=== PATIENT | female | born 1960 | race Caucasian/White ===

== ENCOUNTER 2018-06-14 22:14 | Emergency (ER) | payer MEDICARE, MEDICAID ==
--- NOTE | 2018-06-14 22:38 | EDM.PDOC ---
ED HPI GENERAL MEDICAL PROBLEM - General Chief Complaint: Lower Extremity Injury/Pain Stated Complaint: lower right leg pain Time Seen by Provider: 06/14/18 22:28 Source of Information: Reports: Patient History Limitations: Reports: No Limitations - History of Present Illness INITIAL COMMENTS - FREE TEXT/NARRATIVE: Patient does come in this evening with complaints of right sided buttock pain as well as right lateral lower leg pain and twitching. She states she has not been able to sleep over the last couple of nights. She denies any issues while up and walking around, but just trying to sleep. She denies headache, chest pain, SOB, recent illness, no bowel or bladder complaints. No fever, chills, or night sweats. She has normal ROM with her extremities. She denies recent falls or injury to her leg or back. She also states she has had history of back and left hip pain with some PT visits. Onset Date: 06/12/18 Duration: Intermittent Location: Reports: Lower Extremity, Right Quality: Reports: Sharp Severity: Moderate Improves with: Reports: None Worsens with: Reports: Rest Context: Reports: Other (lying in bed) Associated Symptoms: Reports: No Other Symptoms - Related Data Allergies Allergy/AdvReac Type Severity Reaction Status Date / Time No Known Allergies Allergy Verified 06/14/18 22:42 Home Meds: Home Meds ARIPiprazole [Aripiprazole] 15 mg PO BEDTIME 06/14/18 [History] Benztropine [Cogentin] 1 mg PO BEDTIME 06/14/18 [History] Desmopressin 0.1 mg PO BEDTIME 06/14/18 [History] Simvastatin 10 mg PO DAILY 06/14/18 [History] Vilazodone Hydrochloride [Viibryd] 40 mg PO DAILY 06/14/18 [History] buPROPion HCl [Wellbutrin Xl] 300 mg PO DAILY 06/14/18 [History] lamoTRIgine [Lamotrigine] 100 mg PO BID 06/14/18 [History] metFORMIN [Glucophage XR] 250 mg PO BID 06/14/18 [History] Review of Systems - Review of Systems Review Of Systems: See Below Constitutional: Reports: No Symptoms Eyes: Reports: No Symptoms Ears: Reports: No Symptoms Nose: Reports: No Symptoms Mouth/Throat: Reports: No Symptoms Respiratory: Reports: No Symptoms Cardiovascular: Reports: No Symptoms GI/Abdominal: Reports: No Symptoms Genitourinary: Reports: No Symptoms Musculoskeletal: Reports: Other (right buttocks and lower right leg pain, lateral side.) Skin: Reports: No Symptoms Neurological: Reports: Other (pain and twitching to right lower leg) Psychiatric: Reports: No Symptoms ED EXAM, GENERAL - Physical Exam Exam: See Below Exam Limited By: No Limitations General Appearance: Alert, WD/WN, No Apparent Distress Eye Exam: Bilateral Eye: EOMI, Normal Inspection, PERRL Ears: Normal TMs Nose: Normal Inspection, Normal Mucosa, No Blood Throat/Mouth: Normal Inspection, Normal Lips, Normal Teeth, Normal Gums, Normal Oropharynx, Normal Voice, No Airway Compromise Head: Atraumatic, Normocephalic Neck: Normal Inspection, Supple, Non-Tender, Full Range of Motion Respiratory/Chest: No Respiratory Distress, Lungs Clear, Normal Breath Sounds, No Accessory Muscle Use, Chest Non-Tender Cardiovascular: Normal Peripheral Pulses, Regular Rate, Rhythm, No Edema, No Gallop, No JVD, No Murmur, No Rub Peripheral Pulses: 2+: Radial (L), Radial (R), Posterior Tibial (L), Posterior Tibial (R), Dorsalis Pedis (L), Dorsalis Pedis (R) GI/Abdominal: Normal Bowel Sounds, Soft, Non-Tender, No Organomegaly, No Distention, No Abnormal Bruit, No Mass Back Exam: Normal Inspection, Full Range of Motion, NT Extremities: Normal Inspection, Normal Range of Motion, Non-Tender, Normal Capillary Refill, No Pedal Edema Neurological: Alert, Oriented, CN II-XII Intact, Normal Cognition, Normal Gait, Normal Reflexes, No Motor/Sensory Deficits Psychiatric: Normal Affect, Normal Mood Skin Exam: Warm, Dry, Intact, Normal Color, No Rash Lymphatic: No Adenopathy Departure - Departure Time of Disposition: 01:27 Disposition: Home, Self-Care 01 Condition: Good Clinical Impression: Restless leg, Hyponatremia - Discharge Information *PRESCRIPTION DRUG MONITORING PROGRAM REVIEWED*: No *COPY OF PRESCRIPTION DRUG MONITORING REPORT IN PATIENT FAIA: No Instructions: Restless Legs Syndrome, Hyponatremia, [id number] Forms: ED Department Discharge Additional Instructions: Follow up with Dr. Lazar this week or next to discuss possible medication causes for the leg twitching you are experiencing. She may also want to look into any possible causes that may be related to your back. You do have low sodium which can cause muscle irritation. Continue to stay well hydrated. I am sending home Flexeril/cyclobenzaprine. Please take one tablet every 8 hours as needed. Take the medication I sent with you as needed for sleep and muscle relaxation. Please call if you have any questions or concerns. - Problem List & Annotations (1) Restless leg SNOMED Code(s): 22556965 Code(s): G25.81 - RESTLESS LEGS SYNDROME Status: Acute Priority: Low Current Visit: Yes (2) Hyponatremia SNOMED Code(s): 76107244 Code(s): E87.1 - HYPO-OSMOLALITY AND HYPONATREMIA Status: Acute Priority : Low Current Visit: Yes - Problem List Review Problem List Initiated/Reviewed/Updated: Yes - Assessment/Plan Assessment:: hyponatremia Restless leg Plan: Follow up with Dr. Lazar this week or next to discuss possible medication causes for the leg twitching you are experiencing. She may also want to look into any possible causes that may be related to your back. You do have low sodium which can cause muscle irritation. Continue to stay well hydrated. I am sending home Flexeril/cyclobenzaprine. Please take one tablet every 8 hours as needed. Take the medication I sent with you as needed for sleep and muscle relaxation. Please call if you have any questions or concerns.
[2018-06-14] MEDS ORDERED: methylPREDNISolone Sodium Succinate 40 MG/1 ML SDV IM ONE (22:42)
[2018-06-14 23:16] LABS: ANION GAP 12.5 mmol/L (10-20)
[2018-06-14] MEDS ORDERED: Sodium Chloride 0.9% 1,000 ML IV ONE (23:27)
[2018-06-14] MEDS ORDERED: Sodium Chloride 0.9% 10 ML Syringe FLUSH PRN (23:27)
[2018-06-14] MEDS ORDERED: Take Home: Cyclobenzaprine 10 MG Tab, 4 Tab Pack PO ONE (23:30)
== END 2018-06-15 01:27 | disposition home or self-care (01) ==
LOC: VM.ED 22:14
DX: G25.81 Restless legs syndrome (principal); E87.1 Hypo-osmolality and hyponatremia
CPT/HCPCS: 36415; 80053; 82550; 83735; 84100; 85025; 85379; 86140; 96360; 96372; 99283; A9270-GY; J2920; J7030

== ENCOUNTER 2019-04-18 12:53 | Observation (INO) | payer MEDICARE, MEDICAID ==
[2019-04-18] MEDS ORDERED: Sodium Chloride 0.9% 10 ML Syringe FLUSH PRN (13:16)
[2019-04-18] MEDS ORDERED: Sodium Chloride 0.9% 1,000 ML IV SCH (13:30)
--- NOTE | 2019-04-18 16:41 | CR ---
[id number] RAD/RAD Hip Right 2-3V EXAM: RIGHT HIP 2 VIEWS INDICATION: Groin pain. COMPARISON: None. DISCUSSION: Mild osteoarthritis of the right hip. No fracture, dislocation or other osseous abnormality is identified. IMPRESSION: 1. Mild osteoarthritis. Edwin Funes MD 04/18/19 1640 Thank you for allowing us to participate in the care of your patient.
[2019-04-18] MEDS: ARIPIPRAZOLE 15 MG PO SCH (19:37)
[2019-04-18] MEDS: BENZTROPINE 1 MG PO SCH (19:38)
[2019-04-18] MEDS: DESMOPRESSIN 0.1 MG PO SCH (19:38)
[2019-04-18] MEDS: [UNRECOGNIZED DRUG - OTHER] PO SCH (19:39)
[2019-04-18] MEDS: LAMOTRIGINE 150 MG PO SCH (19:39)
[2019-04-18] MEDS: [UNRECOGNIZED DRUG - OTHER] PO SCH (19:40)
[2019-04-18] MEDS ORDERED: lamoTRIgine 100 MG Tab PO SCH (20:00)
--- NOTE | 2019-04-18 23:06 | PCM.HP ---
H&P History of Present Illness - General Date of Service: 04/18/19 Admit Problem/Dx: Admission Diagnosis/Problem Admission Diagnosis/Problem Confusion Source of Information: Patient, Other (transcript clerk ) - History of Present Illness Initial Comments - Free Text/Narative: 59 yo seen today in clinic went to [employer] [facility] around 7:45 for breakfast but didn't have it there then at 8-8:15 she spoke on the phone with her transcript clerk and was confused with slow speech she michael her to the clinic and she was unstable and dizzy. She has diabetes but only takes metformin. On arrival to the clinic did get OJ and a granola bar then sugar was checked and it was over 100. Her mentation is better but she just feels off like foggy. No headache no vision changes no hx of seizure or recent fall. 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 She had a similar problem in the past with low sodium she believes she felt well last night. Only new med is Klonopin for RLS started 1 week ago but she took it remotely. Urine drug screen did not show benzo's or anything. She has some tremors now but feels like it is her RLS. She has a lot of arthritis problems and feels like her right hip is weaker due to pain she had X-ray which showed only mild arthritis. All lab work in the clinic was ok she was admitted for observation and I checked on her again around 5 pm and she was still off balance per nursing, she was resting so decision was made for her to stay observation overnight and get 1 liter of IV fluids. Onset of Symptoms: Reports: Today, Sudden Duration of Symptoms: Reports: Hour(s): - Related Data Allergies/Adverse Reactions: Allergies Allergy/AdvReac Type Severity Reaction Status Date / Time No Known Allergies Allergy Verified 06/14/18 22:42 Home Medications: Home Meds ARIPiprazole [Aripiprazole] 15 mg PO BEDTIME 06/14/18 [History] Benztropine [Cogentin] 1 mg PO BEDTIME 06/14/18 [History] Desmopressin 0.1 mg PO BEDTIME 06/14/18 [History] Simvastatin 10 mg PO BEDTIME 06/14/18 [History] Vilazodone Hydrochloride [Viibryd] 40 mg PO DAILY 06/14/18 [History] buPROPion HCl [Wellbutrin Xl] 300 mg PO DAILY 06/14/18 [History] metFORMIN [Glucophage XR] 250 mg PO BIDMEALS 06/14/18 [History] Aspirin [Halfprin] 81 mg PO DAILY 04/18/19 [History] Cholecalciferol (Vitamin D3) [Vitamin D3] 2,000 unit PO DAILY 04/18/19 [History] ClonazePAM [KlonoPIN] 0.5 mg PO BEDTIME 04/18/19 [History] Fish Oil/Half Way-3 Fatty Acids [Fish Oil 1,000 MG] 1 gm PO BID 04/18/19 [History] Gabapentin [Neurontin] 300 - 600 mg PO BEDTIME 04/18/19 [History] Meloxicam 7.5 mg PO DAILY 04/18/19 [History] Multivitamin [Multi-Vitamin Daily] 1 tab PO DAILY 04/18/19 [History] Triamcinolone Acetonide [Triamcinolone Acetonide 0.1% Crm] 1 applic TOP BID [History] buPROPion [buPROPion XL] 150 mg PO BEDTIME 04/18/19 [History] lamoTRIgine [Lamotrigine] 150 mg PO BID 04/18/19 [History] Past Medical History HEENT History: Reports: Allergic Rhinitis, Other (See Below) Other HEENT History: myopia. astigmatism Cardiovascular History: Reports: High Cholesterol Respiratory History: Reports: Sleep Apnea Gastrointestinal History: Reports: Chronic Constipation Genitourinary History: Reports: Other (See Below) Other Genitourinary History: urge incontinence. nonorganic enuresis Musculoskeletal History: Reports: Back Pain, Chronic, Other (See Below) Other Musculoskeletal History: DJD. tendinitis of right shoulder. left achilles tendinitis. hip pain Neurological History: Reports: Other (See Below) Other Neuro History: memory loss Psychiatric History: Reports: Bipolar, Depression, Other (See Below) Other Psychiatric History: Borderline Personality Disorder. Dissociative Identity Disorder. social maladjustment Endocrine/Metabolic History: Reports: Diabetes, Type II, Obesity/BMI 30+ Social & Family History - Tobacco Use Smoking Status *Q: Never Smoker - Caffeine Use Caffeine Use: Reports: None - Recreational Drug Use Recreational Drug Use: No H&P Review of Systems - Review of Systems: Review Of Systems: See Below General: Reports: Weakness. Denies: Fever, Chills, Weight Loss HEENT: Reports: Glasses. Denies: Visual Changes Pulmonary: Reports: No Symptoms Cardiovascular: Reports: No Symptoms. Denies: Palpitations, Lightheadedness Gastrointestinal: Reports: No Symptoms Musculoskeletal: Reports: Leg Pain Skin: Reports: No Symptoms Psychiatric: Reports: Confusion Neurological: Reports: Dizziness (describes more as off balance than room spinning ) Hematologic/Lymphatic: Reports: No Symptoms Immunologic: Reports: No Symptoms Exam - Exam Exam: See Below - Vital Signs Vital Signs: Last Vital Signs Temp 98.1 F 04/18/19 21:28 Pulse 70 04/18/19 21:28 Resp 18 04/18/19 21:28 BP 128/71 04/18/19 21:28 Pulse Ox 97 04/18/19 21:28 Orthostatic Blood Pressure [ 145/78 Standing] Orthostatic Blood Pressure [ 148/77 Sitting] Orthostatic Blood Pressure [ 143/72 Supine] Weight: 105.233 kg - Exam General: Alert, Oriented, Cooperative HEENT: Conjunctiva Clear, EACs Clear, EOMI, Pupils Equal, Pupils Reactive Neck: Supple, Trachea Midline, +2 Carotid Pulse wo Bruit Lungs: Clear to Auscultation, Normal Respiratory Effort Cardiovascular: Regular Rate, Regular Rhythm GI/Abdominal Exam: Normal Bowel Sounds, Soft Back Exam: Normal Inspection Extremities: Normal Inspection, Non-Tender, No Pedal Edema Peripheral Pulses: 2+: Carotid (L), Carotid (R) Skin: Warm, Dry, Intact Neurological: Cranial Nerves Intact, Reflexes Equal Bilateral, Normal Speech. No: Strength Equal Bilateral, Normal Gait Neuro Extensive - Mental Status: Alert, Oriented x3, Normal Mood/Affect, Memory Intact Psychiatric: Alert, Normal Affect, Normal Mood - Patient Data Lab Results Last 24 hrs: Laboratory Results - last 24 hr 04/18/19 04/18/19 Range/Units 18:21 19:44 POC Glucose 129 H 93 (74-106) mg/dL - Problem List (1) Depression SNOMED Code(s): 77184724 ICD Code: F32.9 - MAJOR DEPRESSIVE DISORDER, SINGLE EPISODE, UNSPECIFIED Status: Chronic Priority: Medium Current Visit: Yes Qualifiers: Depression Type: unspecified Qualified Code(s): F32.9 - Major depressive disorder, single episode, unspecified (2) Confusion SNOMED Code(s): 257920677 ICD Code: R41.0 - DISORIENTATION, UNSPECIFIED Status: Acute Priority: High Current Visit: Yes (3) Diabetes SNOMED Code(s): 51891540 ICD Code: E11.9 - TYPE 2 DIABETES MELLITUS WITHOUT COMPLICATIONS Status: Chronic Priority: Medium Current Visit: Yes Qualifiers: Diabetes mellitus type: type 2 Diabetes mellitus intermediate teacher insulin use: without mcc use Diabetes mellitus complication status: without complication Qualified Code(s): E11.9 - Type 2 diabetes mellitus without complications Problem List Initiated/Reviewed/Updated: Yes Orders Last 24hrs: Active Orders 24 hr Category Date Time Status Admission Status [Patient Status] [ADT] Routine ADT 04/18/19 13:01 Active Ambulate [RC] 08,20 Care 04/18/19 13:16 Active Blood Glucose Check, Bedside [RC] 07,11,17,20 Care 04/18/19 13:16 Active Oxygen Therapy [RC] .PRN Care 04/18/19 13:16 Active Up With Assistance [RC] 08,20 Care 04/18/19 13:16 Active VTE/DVT Education [RC] .PRN Care 04/18/19 13:16 Active Vital Signs [RC] 02,06,10,14,18,22 Care 04/18/19 13:16 Active PT Evaluation and Treatment [CONS] Routine Cons 04/18/19 13:16 Active [place] [employer] Diet [DIET] Diet 04/18/19 Lunch Active ARIPiprazole [Aripiprazole] Med 04/18/19 20:00 Active 0 mg PO BEDTIME Aspirin [Halfprin] Med 04/19/19 08:00 Active 81 mg PO DAILY Benztropine [Cogentin] Med 04/18/19 20:00 Active 1 mg PO BEDTIME Desmopressin [Desmopressin] Med 04/18/19 20:00 Active 0 mg PO BEDTIME Gabapentin [Neurontin] Med 04/18/19 20:00 Active 300 mg PO BEDTIME Lamotrigine. 150mg Tab Med 04/18/19 20:00 Active 0 each PO BID Meloxicam [Mobic] Med 04/19/19 08:00 Active 7.5 mg PO DAILY Simvastatin [Zocor] Med 04/18/19 20:00 Active 0 mg PO BEDTIME Sodium Chloride 0.9% [Normal Saline] 1,000 ml Med 04/18/19 13:30 Active IV ASDIRECTED Sodium Chloride 0.9% [Saline Flush] Med 04/18/19 13:16 Active 10 ml FLUSH ASDIRECTED PRN Vilazodone Hydrochloride [Viibryd] Med 04/19/19 08:00 Active 0 mg PO DAILY buPROPion HCl [Wellbutrin Xl] Med 04/19/19 08:00 Active 0 mg PO DAILY buPROPion [Wellbutrin XL] Med 04/19/19 08:00 Active 150 mg PO DAILY Peripheral IV Insertion Adult [OM.PC] Routine Oth 04/18/19 13:16 Ordered Resuscitation Status Routine Resus Stat 04/18/19 13:16 Ordered Medication Orders Aspirin (Halfprin) 81 mg PO DAILY [facility] Bupropion HCl (Wellbutrin Xl) 150 mg PO DAILY [facility] Gabapentin (Neurontin) 300 mg PO BEDTIME [facility] Last Admin: 04/18/19 19:39 Dose: 300 mg Sodium Chloride (Normal Saline) 1,000 mls @ 100 mls/hr IV ASDIRECTED [facility] Stop: 04/18/19 23:29 Last Admin: 04/18/19 14:08 Dose: 100 mls/hr Meloxicam (Mobic) 7.5 mg PO DAILY [facility] Own Supply: (Aripiprazole 15mg) 0 mg PO BEDTIME [facility] Last Admin: 04/18/19 19:37 Dose: 15 mg Own Supply: Benztropine [ Cogentin] 1 Mg 1 mg PO BEDTIME [facility] Last Admin: 04/18/19 19:38 Dose: 1 mg Own Supply: Bupropion Hcl [ Wellbutrin Xl] 300 Mg 0 mg PO DAILY [facility] Own Supply: (Desmopressin 0.1 Mg) 0 mg PO BEDTIME [facility] Last Admin: 04/18/19 19:38 Dose: 0.1 mg Own Supply: Vilazodone Hydrochloride [ Viibryd] 40 Mg 0 mg PO DAILY [facility] Own Supply: Lamotrigine. 150mg Tab 0 each PO BID [facility] Last Admin: 04/18/19 19:39 Dose: 150 each Simvastatin (Zocor) 0 mg PO BEDTIME [facility] Last Admin: 04/18/19 19:40 Dose: 10 mg Sodium Chloride (Saline Flush) 10 ml FLUSH ASDIRECTED PRN PRN Reason: Keep Vein Open Assessment/Plan Comment:: Confusion and instability Diabetes 2 possible episode of hypoglycemia Depression with personality disorder RLS Obesity Enuresis on DDAVP Plan: Admit for IV fluids 1 liter orthostatic vitals QID accuchecks consider repeat labs if symptoms don't improve See PT Hold metformin and klonopin Could also consider inner ear problems or labrynthitis as a cause of her symptoms although it cam on acutely and she denied any URI symptoms or sinus congestion Patient does seem to be slightly slowed today and not yet back to her baseline so we will continue to observe her She had a head CT and that was negative DVT prophylaxis not ordered as admit will likely be under 24 hrs
[2019-04-19] MEDS ORDERED: MELOXICAM 7.5 MG PO SCH (08:00)
[2019-04-19] MEDS: Aspirin 81 MG Tab.EC PO SCH (08:25)
[2019-04-19] MEDS: LAMOTRIGINE 150 MG PO SCH ×2 (08:25→20:23)
[2019-04-19] MEDS: BUPROPION 150 MG PO SCH (08:25)
[2019-04-19] MEDS: BUPROPION 300 MG PO SCH (08:26)
[2019-04-19] MEDS: VILAZODONE HYDROCHLORIDE 40 MG PO SCH (08:27)
--- NOTE | 2019-04-19 09:02 | PCM.SN ---
- Free Text/Narrative Note: S: Patient seen this morning on rounds. She is feeling much better today. Dizziness is resolved. She states she has had dizziness every morning for the past 2 weeks but that this has resolved by each afternoon so she has not been overly concerned about this. She came in yesterday as someone else saw her acting funny. She is not having any chest pain, shortness of breath, or palpitations. She is having more back and hip pain. She states that over the past few weeks, she has not been doing very well with her diet and exercise. She plans to get back into exercising later this [facility] at the [facility]. She has mostly been eating candy bars from 10 am to 10 pm; she has not really been eating much for other food. She has also not been consistent with drinking enough water and has gone back to drinking mostly diet coke. O: Vitals reviewed. Patient is sitting up in bed in no acute distress. MMM. No cervical lymphadenopathy or thyromegaly. Heart with RRR, normal S1 and S2, no murmurs. Lungs CTAB. Abdomen soft, nontender. No pedal edema. A/P: #1 Dizziness #2 Type 2 diabetes - Suspect dizziness is related to relative hypoglycemia vs medication adjustments. - PT will see the patient today. - Nursing to give education regarding dietary considerations for diabetics. - Likely will be dismissed home later today but will depend on PT assessment. Rani Lazar MD
[2019-04-19] MEDS: predniSONE 20 MG Tab PO SCH (13:38)
--- NOTE | 2019-04-19 15:53 | PCM.PN ---
- General Info Date of Service: 04/19/19 Subjective Update: 59 yo female hospital day #2 admitted for dizziness of uncertain etiology. Please see simple note from earlier today as well. Patient was feeling better this morning but it did not go well when PT had her up and walking. Her balance was quite poor and she had recurrence of dizziness. She denies any other symptoms. No hearing loss, ear pain, or tinnitus. - Review of Systems General: Reports: No Symptoms HEENT: Reports: No Symptoms Pulmonary: Reports: No Symptoms Cardiovascular: Reports: No Symptoms Gastrointestinal: Reports: No Symptoms Genitourinary: Reports: No Symptoms Musculoskeletal: Reports: No Symptoms Skin: Reports: No Symptoms Neurological: Reports: Dizziness - Patient Data Vitals - Most Recent: Last Vital Signs Temp 36.7 C 04/19/19 14:00 Pulse 71 04/19/19 14:00 Resp 20 04/19/19 10:00 BP 139/77 04/19/19 14:00 Pulse Ox 99 04/19/19 14:00 Orthostatic Blood Pressure [ 145/78 Standing] Orthostatic Blood Pressure [ 148/77 Sitting] Orthostatic Blood Pressure [ 143/72 Supine] Weight - Most Recent: 105.233 kg I&O - Last 24 Hours: Intake & Output 04/19/19 04/19/19 04/19/19 06:59 14:59 22:59 Intake Total 800 740 Output Total 200 Balance 600 740 Lab Results Last 24 Hours: Laboratory Results - last 24 hr 04/18/19 04/18/19 04/19/19 Range/Units 18:21 19:44 04:56 POC Glucose 129 H 93 91 (74-106) mg/dL Med Orders - Current: Current Medications Aspirin (Halfprin) 81 mg PO DAILY [facility] Last Admin: 04/19/19 08:25 Dose: 81 mg Bupropion HCl (Wellbutrin Xl) 150 mg PO DAILY [facility] Last Admin: 04/19/19 08:25 Dose: 150 mg Gabapentin (Neurontin) 300 mg PO BEDTIME [facility] Last Admin: 04/18/19 19:39 Dose: 300 mg Meloxicam (Mobic) 7.5 mg PO DAILY [facility] Last Admin: 04/19/19 08:25 Dose: 7.5 mg Own Supply: (Aripiprazole 15mg) 0 mg PO BEDTIME [facility] Last Admin: 04/18/19 19:37 Dose: 15 mg Own Supply: Benztropine [ Cogentin] 1 Mg 1 mg PO BEDTIME [facility] Last Admin: 04/18/19 19:38 Dose: 1 mg Own Supply: Bupropion Hcl [ Wellbutrin Xl] 300 Mg 0 mg PO DAILY [facility] Last Admin: 04/19/19 08:26 Dose: 300 mg Own Supply: (Desmopressin 0.1 Mg) 0 mg PO BEDTIME [facility] Last Admin: 04/18/19 19:38 Dose: 0.1 mg Own Supply: Vilazodone Hydrochloride [ Viibryd] 40 Mg 0 mg PO DAILY [facility] Last Admin: 04/19/19 08:27 Dose: 40 mg Own Supply: Lamotrigine. 150mg Tab 0 each PO BID [facility] Last Admin: 04/19/19 08:25 Dose: 150 each Prednisone (Prednisone) 60 mg PO WITHBREAKFAST [facility] Last Admin: 04/19/19 13:38 Dose: 60 mg Simvastatin (Zocor) 0 mg PO BEDTIME [facility] Last Admin: 04/18/19 19:40 Dose: 10 mg Sodium Chloride (Saline Flush) 10 ml FLUSH ASDIRECTED PRN PRN Reason: Keep Vein Open Discontinued Medications Sodium Chloride (Normal Saline) 1,000 mls @ 100 mls/hr IV ASDIRECTED [facility] Stop: 04/18/19 23:29 Last Admin: 04/18/19 14:08 Dose: 100 mls/hr - Exam General: Alert, Cooperative, No Acute Distress HEENT: Mucous Membr. Moist/[place], Other (Ear canals and TM's normal bilaterally; hearing grossly normal) Neck: Supple, Trachea Midline, No Thyromegaly. No: Lymphadenopathy Lungs: Clear to Auscultation, Normal Respiratory Effort Cardiovascular: Regular Rate, Regular Rhythm, No Murmurs GI/Abdominal Exam: Normal Bowel Sounds, Soft, Non-Tender, No Organomegaly, No Distention, No Mass Extremities: Non-Tender, No Pedal Edema, Normal Capillary Refill Peripheral Pulses: 2+: Radial (L), Radial (R) Skin: Warm, Dry, Intact Neurological: No New Focal Deficit - Problem List & Annotations (1) Dizziness SNOMED Code(s): 070983417, 104648424 Code(s): R42 - DIZZINESS AND GIDDINESS Status: Acute Current Visit: Yes (2) Diabetes SNOMED Code(s): 01718238 Code(s): E11.9 - TYPE 2 DIABETES MELLITUS WITHOUT COMPLICATIONS Status: Chronic Priority: Medium Current Visit: Yes Qualifiers: Diabetes mellitus type: type 2 Diabetes mellitus penitentiary insulin use: without petroleum terminal plant operator use Diabetes mellitus complication status: without complication Qualified Code(s): E11.9 - Type 2 diabetes mellitus without complications (3) Osteoarthritis SNOMED Code(s): 216673853 Code(s): M19.90 - UNSPECIFIED OSTEOARTHRITIS, UNSPECIFIED SITE Status: Chronic Current Visit: Yes Qualifiers: Osteoarthritis location: multiple joints Osteoarthritis type: primary Qualified Code(s): M15.0 - Primary generalized (osteo)arthritis (4) MILO (obstructive sleep apnea) SNOMED Code(s): 30356184 Code(s): G47.33 - OBSTRUCTIVE SLEEP APNEA (ADULT) (PEDIATRIC) Status: Chronic Current Visit: Yes (5) Obesity SNOMED Code(s): 497351107, 773585819 Code(s): E66.9 - OBESITY, UNSPECIFIED Status: Chronic Current Visit: Yes Qualifiers: Obesity type: due to excess calories Obesity classification: adult class 3 (BMI >= 40) Serious obesity comorbidity presence: with serious comorbidity (6) Hyperlipidemia SNOMED Code(s): 38606823 Code(s): E78.5 - HYPERLIPIDEMIA, UNSPECIFIED Status: Chronic Current Visit: Yes Qualifiers: Hyperlipidemia type: other hyperlipidemia Qualified Code(s): E78.49 - Other hyperlipidemia; E78.4 - Other hyperlipidemia (7) Borderline personality disorder SNOMED Code(s): 67567105 Code(s): F60.3 - BORDERLINE PERSONALITY DISORDER Status: Chronic Current Visit: Yes (8) Depression SNOMED Code(s): 00601964 Code(s): F32.9 - MAJOR DEPRESSIVE DISORDER, SINGLE EPISODE, UNSPECIFIED Status: Chronic Priority: Medium Current Visit: Yes Qualifiers: Depression Type: unspecified Qualified Code(s): F32.9 - Major depressive disorder, single episode, unspecified (9) Enuresis SNOMED Code(s): 262854166 Code(s): R32 - UNSPECIFIED URINARY INCONTINENCE Status: Chronic Current Visit: Yes (10) Restless leg SNOMED Code(s): 16288697 Code(s): G25.81 - RESTLESS LEGS SYNDROME Status: Chronic Priority: Low Current Visit: No - Problem List Review Problem List Initiated/Reviewed/Updated: Yes - My Orders Last 24 Hours: My Active Orders 04/19/19 12:45 predniSONE 60 mg PO WITHBREAKFAST - Assessment Assessment:: 59 yo female admitted yesterday with dizziness of uncertain etiology; felt better at rest but was very unsteady when ambulating with PT. - Plan Plan:: #1 Dizziness - PT felt this may be an inner ear problem such as labyrinthitis. - Therefore, reasonable to do a trial of prednisone. Reviewed need to be cautious with this given patient's mental health history but she agrees to trial this. - Will start with 60 mg daily and monitor for improvement. - PT to reassess tomorrow. - If ongoing issues, may need transfer to [facility] for MRI. If continuing to improve but slowly, will consider instead admitted patient to swing bed for rehabilitation. #2 Type 2 diabetes - Metformin is held. - QID accuchecks with low dose insulin sliding scale given we are starting prednisone as above. #3 OA - PT will also be working with her on mobility to this regard as well. #4 MLIO #5 Obesity #6 Hyperlipidemia #7 Borderline Personality Disorder #8 Depression #9 Enuresis #10 RLS - Continue home medications apart from clonazepam which has been held since admission given negative UDS and concerns for this contributing to current symptoms. Patient will remain on observation status overnight - will reassess tomorrow and determine ability to be dismissed home, transfer to [facility], or transition to swing bed. No VTE prophylaxis as admission still expected to be <48 hours. Code status is full - discussed with patient on admission.
[2019-04-19] MEDS: Insulin Lispro 100 Unit/ML 3 ML KwikPen SUBCUT SCH (18:21)
[2019-04-19] MEDS: [UNRECOGNIZED DRUG - OTHER] PO SCH (20:22)
[2019-04-19] MEDS: ARIPIPRAZOLE 15 MG PO SCH (20:22)
[2019-04-19] MEDS: DESMOPRESSIN 0.1 MG PO SCH (20:23)
[2019-04-19] MEDS: BENZTROPINE 1 MG PO SCH (20:23)
[2019-04-19] MEDS: Acetaminophen 500 MG Tab PO PRN (20:24)
[2019-04-19] MEDS: [UNRECOGNIZED DRUG - OTHER] PO SCH (20:27)
[2019-04-20] MEDS ORDERED: Meloxicam 7.5 MG Tab PO SCH (08:00)
[2019-04-20] MEDS: VILAZODONE HYDROCHLORIDE 40 MG PO SCH (09:04)
[2019-04-20] MEDS: LAMOTRIGINE 150 MG PO SCH (09:05)
[2019-04-20] MEDS: BUPROPION 300 MG PO SCH (09:05)
[2019-04-20] MEDS: BUPROPION 150 MG PO SCH (09:06)
[2019-04-20] MEDS: Aspirin 81 MG Tab.EC PO SCH (09:09)
[2019-04-20] MEDS: predniSONE 20 MG Tab PO SCH (09:09)
[2019-04-20] MEDS: Acetaminophen 500 MG Tab PO PRN (09:09)
[2019-04-20] MEDS: Insulin Lispro 100 Unit/ML 3 ML KwikPen SUBCUT SCH ×2 (09:59→12:35)
--- NOTE | 2019-04-20 10:18 | PCM.DCSUM1 ---
Discharge Summary - Hospital Course Brief History: Ms. Valdez is a 59 yo female who was admitted to observation for further monitoring related to dizziness and gait instability. - Discharge Data Discharge Date: 04/20/19 Discharge Disposition: DC/Tfer W/I Hosp To Swing 61 Condition: Good - Discharge Diagnosis/Problem(s) (1) Dizziness SNOMED Code(s): 517240356, 011865468 ICD Code: R42 - DIZZINESS AND GIDDINESS Status: Acute Current Visit: Yes (2) Diabetes SNOMED Code(s): 71768732 ICD Code: E11.9 - TYPE 2 DIABETES MELLITUS WITHOUT COMPLICATIONS Status: Chronic Priority: Medium Current Visit: Yes Qualifiers: Diabetes mellitus type: type 2 Diabetes mellitus correctional counselor/case manager insulin use: without correctional counselor/case manager use Diabetes mellitus complication status: without complication Qualified Code(s): E11.9 - Type 2 diabetes mellitus without complications (3) Osteoarthritis SNOMED Code(s): 870964302 ICD Code: M19.90 - UNSPECIFIED OSTEOARTHRITIS, UNSPECIFIED SITE Status: Chronic Current Visit: Yes Qualifiers: Osteoarthritis location: multiple joints Osteoarthritis type: primary Qualified Code(s): M15.0 - Primary generalized (osteo)arthritis (4) MILO (obstructive sleep apnea) SNOMED Code(s): 49548726 ICD Code: G47.33 - OBSTRUCTIVE SLEEP APNEA (ADULT) (PEDIATRIC) Status: Chronic Current Visit: Yes (5) Obesity SNOMED Code(s): 409294445, 070777651 ICD Code: E66.9 - OBESITY, UNSPECIFIED Status: Chronic Current Visit: Yes Qualifiers: Obesity type: due to excess calories Obesity classification: adult class 3 (BMI >= 40) Serious obesity comorbidity presence: with serious comorbidity (6) Hyperlipidemia SNOMED Code(s): 77210420 ICD Code: E78.5 - HYPERLIPIDEMIA, UNSPECIFIED Status: Chronic Current Visit: Yes Qualifiers: Hyperlipidemia type: other hyperlipidemia Qualified Code(s): E78.49 - Other hyperlipidemia; E78.4 - Other hyperlipidemia (7) Borderline personality disorder SNOMED Code(s): 29256439 ICD Code: F60.3 - BORDERLINE PERSONALITY DISORDER Status: Chronic Current Visit: Yes (8) Depression SNOMED Code(s): 12089987 ICD Code: F32.9 - MAJOR DEPRESSIVE DISORDER, SINGLE EPISODE, UNSPECIFIED Status: Chronic Priority: Medium Current Visit: Yes Qualifiers: Depression Type: unspecified Qualified Code(s): F32.9 - Major depressive disorder, single episode, unspecified (9) Enuresis SNOMED Code(s): 172131552 ICD Code: R32 - UNSPECIFIED URINARY INCONTINENCE Status: Chronic Current Visit: Yes (10) Restless leg SNOMED Code(s): 24316147 ICD Code: G25.81 - RESTLESS LEGS SYNDROME Status: Chronic Priority: Low Current Visit: No - Patient Summary/Data Operative Procedure(s) Performed: none Complications: none Consults: Consultations 04/18/19 13:16 PT Evaluation and Treatment [CONS] Routine Labs Pending at D/C: none Recommended Follow-up Testing/Procedures: none Planned Operative Procedure(s) after DC: none Hospital Course: Labs and head CT were unremarkable. She also had hip x-rays due to increased hip pain above baseline that showed arthritis but were otherwise normal. She was given a liter of IV fluids and had a PT consult. Her symptoms at rest were resolved by hospital day #1 but she still had significant unsteadiness when ambulating with PT. There was concern for possible labyrinthitis; therefore, she was started on prednisone. Her symptoms were further improved on hospital day #2 but PT still felt she would benefit from further therapies prior to going home. Therefore, she will be transitioned to swing bed today with anticipation she will be prepared for dismissal in the next 1-2 days. Her hospitalization was otherwise uncomplicated. - Patient Instructions Diet: Usual Diet as Tolerated - Discharge Plan *PRESCRIPTION DRUG MONITORING PROGRAM REVIEWED*: No *COPY OF PRESCRIPTION DRUG MONITORING REPORT IN PATIENT AFIA: No Home Medications: Home Meds ARIPiprazole [Aripiprazole] 15 mg PO BEDTIME 06/14/18 [History] Benztropine [Cogentin] 1 mg PO BEDTIME 06/14/18 [History] Desmopressin 0.1 mg PO BEDTIME 06/14/18 [History] Simvastatin 10 mg PO BEDTIME 06/14/18 [History] Vilazodone Hydrochloride [Viibryd] 40 mg PO DAILY 06/14/18 [History] buPROPion HCl [Wellbutrin Xl] 300 mg PO DAILY 06/14/18 [History] metFORMIN [Glucophage XR] 250 mg PO BIDMEALS 06/14/18 [History] Aspirin [Halfprin] 81 mg PO DAILY 04/18/19 [History] Gabapentin [Neurontin] 300 - 600 mg PO BEDTIME 04/18/19 [History] Multivitamin [Multi-Vitamin Daily] 1 tab PO DAILY 04/18/19 [History] buPROPion [buPROPion XL] 150 mg PO BEDTIME 04/18/19 [History] lamoTRIgine [Lamotrigine] 150 mg PO BID 04/18/19 [History] Acetaminophen [Tylenol Extra Strength] 1,000 mg PO Q6H PRN tablet 04/20/19 [Rx] predniSONE 60 mg PO WITHBREAKFAST tablet 04/20/19 [Rx] - Discharge Summary/Plan Comment DC Time >30 min.: No - General Info Date of Service: 04/20/19 Subjective Update: Patient slept well last night and is feeling better at rest today. However, still slightly unsteady with ambulation, although this is improved compared to yesterday. She otherwise denies any symptoms apart from being disappointed that she is not getting discharged today. - Review of Systems General: Reports: No Symptoms HEENT: Reports: No Symptoms Pulmonary: Reports: No Symptoms Cardiovascular: Reports: No Symptoms Gastrointestinal: Reports: No Symptoms Genitourinary: Reports: No Symptoms Musculoskeletal: Reports: No Symptoms Skin: Reports: No Symptoms Neurological: Reports: No Symptoms - Patient Data Vitals - Most Recent: Last Vital Signs Temp 36.5 C 04/20/19 05:35 Pulse 69 04/20/19 05:35 Resp 14 04/20/19 05:35 BP 120/66 04/20/19 05:35 Pulse Ox 94 L 04/20/19 05:35 Orthostatic Blood Pressure [ 145/78 Standing] Orthostatic Blood Pressure [ 148/77 Sitting] Orthostatic Blood Pressure [ 143/72 Supine] Weight - Most Recent: 105.233 kg I&O - Last 24 hours: Intake & Output 04/19/19 04/20/19 04/20/19 22:59 06:59 14:59 Intake Total 240 180 Output Total 1500 525 Balance -1260 -525 180 Lab Results - Last 24 hrs: Laboratory Results - last 24 hr 04/19/19 04/19/19 04/20/19 Range/Units 11:34 20:42 05:49 POC Glucose 145 H 205 H 108 H (74-106) mg/dL Med Orders - Current: Current Medications Acetaminophen (Tylenol Extra Strength) 1,000 mg PO Q6H PRN PRN Reason: Pain Last Admin: 04/20/19 09:09 Dose: 1,000 mg Aspirin (Halfprin) 81 mg PO DAILY [facility] Last Admin: 04/20/19 09:09 Dose: 81 mg Bupropion HCl (Wellbutrin Xl) 150 mg PO DAILY [facility] Last Admin: 04/20/19 09:06 Dose: 150 mg Gabapentin (Neurontin) 300 mg PO BEDTIME [facility] Last Admin: 04/19/19 20:27 Dose: 300 mg Insulin Human Lispro (Humalog) 0 unit SUBCUT TIDMEALS [facility]; Protocol Last Admin: 04/20/19 09:59 Dose: Not Given Own Supply: (Aripiprazole 15mg) 0 mg PO BEDTIME [facility] Last Admin: 04/19/19 20:22 Dose: 15 mg Own Supply: Benztropine [ Cogentin] 1 Mg 1 mg PO BEDTIME [facility] Last Admin: 04/19/19 20:23 Dose: 1 mg Own Supply: Bupropion Hcl [ Wellbutrin Xl] 300 Mg 0 mg PO DAILY [facility] Last Admin: 04/20/19 09:05 Dose: 300 mg Own Supply: (Desmopressin 0.1 Mg) 0 mg PO BEDTIME [facility] Last Admin: 04/19/19 20:23 Dose: 0.1 mg Own Supply: Vilazodone Hydrochloride [ Viibryd] 40 Mg 0 mg PO DAILY [facility] Last Admin: 04/20/19 09:04 Dose: 40 mg Own Supply: Lamotrigine. 150mg Tab 0 each PO BID [facility] Last Admin: 04/20/19 09:05 Dose: 150 each Prednisone (Prednisone) 60 mg PO WITHBREAKFAST [facility] Last Admin: 04/20/19 09:09 Dose: 60 mg Simvastatin (Zocor) 0 mg PO BEDTIME [facility] Last Admin: 04/19/19 20:22 Dose: 10 mg Sodium Chloride (Saline Flush) 10 ml FLUSH ASDIRECTED PRN PRN Reason: Keep Vein Open Last Admin: 04/19/19 20:58 Dose: 10 ml Discontinued Medications Sodium Chloride (Normal Saline) 1,000 mls @ 100 mls/hr IV ASDIRECTED [facility] Stop: 04/18/19 23:29 Last Admin: 04/18/19 14:08 Dose: 100 mls/hr Meloxicam (Mobic) 7.5 mg PO DAILY [facility] Last Admin: 04/19/19 08:25 Dose: 7.5 mg Meloxicam (Mobic) 7.5 mg PO DAILY [facility] Last Admin: 04/20/19 09:59 Dose: Not Given - Exam General: Reports: Alert, Oriented, Cooperative, No Acute Distress HEENT: Reports: Pupils Equal, Pupils Reactive, Mucous Membr. Moist/[place] Neck: Reports: Supple, Trachea Midline, No Thyromegaly. Denies: Lymphadenopathy Lungs: Reports: Clear to Auscultation, Normal Respiratory Effort Cardiovascular: Reports: Regular Rate, Regular Rhythm, No Murmurs GI/Abdominal Exam: Normal Bowel Sounds, Soft, Non-Tender, No Organomegaly, No Distention, No Mass Extremities: Non-Tender, No Pedal Edema, Normal Capillary Refill Skin: Reports: Warm, Dry, Intact Neurological: Reports: No New Focal Deficit
== END 2019-04-20 15:15 | disposition swing bed (61) ==
LOC: VM.MS 13:01
PROVIDERS: ADMIT Internal Medicine; ATTEND Family Medicine
DX: R42 Dizziness and giddiness (principal); R41.0 Disorientation, unspecified; R26.89 Other abnormalities of gait and mobility; R32 Unspecified urinary incontinence; E11.9 Type 2 diabetes mellitus without complications; E78.49 Other hyperlipidemia; F32.9 Major depressive disorder, single episode, unspecified; F60.3 Borderline personality disorder; E78.00 Pure hypercholesterolemia, unspecified; G47.33 Obstructive sleep apnea (adult) (pediatric); G25.81 Restless legs syndrome; M15.0 Primary generalized (osteo)arthritis; E66.09 Other obesity due to excess calories; Z68.41 Body mass index [BMI] 40.0-44.9, adult; Z79.84 Long term (current) use of oral hypoglycemic drugs; Z79.82 Long term (current) use of aspirin; Z79.52 Long term (current) use of systemic steroids; Z79.899 Other long term (current) drug therapy
CPT/HCPCS: 73502; 82962; 96360; 96361; 97110; 97116; 97161; A9270; G0378; G0379; J7030

== ENCOUNTER 2019-04-20 15:10 | Inpatient (IN) | payer MEDICAID ==
[2019-04-20] MEDS ORDERED: Acetaminophen 500 MG Tab PO PRN (15:35)
--- NOTE | 2019-04-20 16:48 | PCM.HP ---
H&P History of Present Illness - General Date of Service: 04/20/19 Admit Problem/Dx: Admission Diagnosis/Problem Admission Diagnosis/Problem Confusion Source of Information: Patient History Limitations: Reports: No Limitations - History of Present Illness Initial Comments - Free Text/Narative: Ms. Valdez is a 59 yo female admitted to swing bed for further PT related to dizziness and imbalance following an observation stay for the same. Please see discharge summary for additional details. Patient is improving but is not felt stable enough to dismiss home independently. Hip/Lower back Pain Score (Numeric/FACES): 7 - Related Data Allergies/Adverse Reactions: Allergies Allergy/AdvReac Type Severity Reaction Status Date / Time No Known Allergies Allergy Verified 06/14/18 22:42 Home Medications: Home Meds ARIPiprazole [Aripiprazole] 15 mg PO BEDTIME 06/14/18 [History] Benztropine [Cogentin] 1 mg PO BEDTIME 06/14/18 [History] Desmopressin 0.1 mg PO BEDTIME 06/14/18 [History] Simvastatin 10 mg PO BEDTIME 06/14/18 [History] Vilazodone Hydrochloride [Viibryd] 40 mg PO DAILY 06/14/18 [History] buPROPion HCl [Wellbutrin Xl] 300 mg PO DAILY 06/14/18 [History] metFORMIN [Glucophage XR] 250 mg PO BIDMEALS 06/14/18 [History] Aspirin [Halfprin] 81 mg PO DAILY 04/18/19 [History] Gabapentin [Neurontin] 300 - 600 mg PO BEDTIME 04/18/19 [History] Multivitamin [Multi-Vitamin Daily] 1 tab PO DAILY 04/18/19 [History] buPROPion [buPROPion XL] 150 mg PO BEDTIME 04/18/19 [History] lamoTRIgine [Lamotrigine] 150 mg PO BID 04/18/19 [History] Acetaminophen [Tylenol Extra Strength] 1,000 mg PO Q6H PRN tablet 04/20/19 [Rx] predniSONE 60 mg PO WITHBREAKFAST tablet 04/20/19 [Rx] Past Medical History HEENT History: Reports: Allergic Rhinitis, Other (See Below) Other HEENT History: myopia. astigmatism Cardiovascular History: Reports: High Cholesterol Respiratory History: Reports: Sleep Apnea Gastrointestinal History: Reports: Chronic Constipation Genitourinary History: Reports: Other (See Below) Other Genitourinary History: urge incontinence. nonorganic enuresis Musculoskeletal History: Reports: Back Pain, Chronic, Other (See Below) Other Musculoskeletal History: DJD. tendinitis of right shoulder. left achilles tendinitis. hip pain Neurological History: Reports: Other (See Below) Other Neuro History: memory loss Psychiatric History: Reports: Bipolar, Depression, Other (See Below) Other Psychiatric History: Borderline Personality Disorder. Dissociative Identity Disorder. social maladjustment Endocrine/Metabolic History: Reports: Diabetes, Type II, Obesity/BMI 30+ Hematologic History: Reports: None Immunologic History: Reports: None Oncologic (Cancer) History: Reports: None Dermatologic History: Reports: None - Infectious Disease History Infectious Disease History: Reports: None Social & Family History - Family History GI: Reports: Cirrhosis Endocrine/Metabolic: Reports: Diabetes, type II - Tobacco Use Smoking Status *Q: Never Smoker - Caffeine Use Caffeine Use: Reports: None - Alcohol Use Alcohol Use History: No Alcohol Use in Last Twelve Months: No - Recreational Drug Use Recreational Drug Use: No - Living Situation & Occupation Living situation: Reports: Single, Alone Occupation: Disabled H&P Review of Systems - Review of Systems: Review Of Systems: See Below General: Reports: No Symptoms HEENT: Reports: No Symptoms Pulmonary: Reports: No Symptoms Cardiovascular: Reports: No Symptoms Gastrointestinal: Reports: No Symptoms Genitourinary: Reports: No Symptoms Musculoskeletal: Reports: No Symptoms Skin: Reports: No Symptoms Psychiatric: Reports: No Symptoms Neurological: Reports: No Symptoms Hematologic/Lymphatic: Reports: No Symptoms Exam - Exam Exam: See Below - Vital Signs Weight: 105.233 kg - Exam General: Alert, Oriented, Cooperative HEENT: Conjunctiva Clear, Mucosa Moist & [place], Posterior Pharynx Clear, Pupils Equal, Pupils Reactive Neck: Supple, Trachea Midline. No: Lymphadenopathy, Thyromegaly Lungs: Clear to Auscultation, Normal Respiratory Effort Cardiovascular: Regular Rate, Regular Rhythm, Normal S1, Normal S2 GI/Abdominal Exam: Normal Bowel Sounds, Soft, Non-Tender, No Organomegaly, No Distention, No Mass Extremities: Normal Inspection, Non-Tender, No Pedal Edema, Normal Capillary Refill Peripheral Pulses: 2+: Radial (L), Radial (R) Skin: Warm, Dry, Intact *Q Meaningful Use (ADM) - VTE *Q VTE Anticoagulation Contraindications: Med/TX Not Indicated/Need - Problem List (1) Dizziness SNOMED Code(s): 546389046, 162497197 ICD Code: R42 - DIZZINESS AND GIDDINESS Status: Acute Current Visit: No (2) Diabetes SNOMED Code(s): 09349402 ICD Code: E11.9 - TYPE 2 DIABETES MELLITUS WITHOUT COMPLICATIONS Status: Chronic Priority: Medium Current Visit: No Qualifiers: Diabetes mellitus type: type 2 Diabetes mellitus nursing home insulin use: without terminal computer operator use Diabetes mellitus complication status: without complication Qualified Code(s): E11.9 - Type 2 diabetes mellitus without complications (3) Borderline personality disorder SNOMED Code(s): 27167830 ICD Code: F60.3 - BORDERLINE PERSONALITY DISORDER Status: Chronic Current Visit: No (4) Depression SNOMED Code(s): 89480010 ICD Code: F32.9 - MAJOR DEPRESSIVE DISORDER, SINGLE EPISODE, UNSPECIFIED Status: Chronic Priority: Medium Current Visit: No Qualifiers: Depression Type: unspecified Qualified Code(s): F32.9 - Major depressive disorder, single episode, unspecified (5) Enuresis SNOMED Code(s): 654731588 ICD Code: R32 - UNSPECIFIED URINARY INCONTINENCE Status: Chronic Current Visit: No (6) Hyperlipidemia SNOMED Code(s): 35125315 ICD Code: E78.5 - HYPERLIPIDEMIA, UNSPECIFIED Status: Chronic Current Visit: No Qualifiers: Hyperlipidemia type: other hyperlipidemia Qualified Code(s): E78.49 - Other hyperlipidemia; E78.4 - Other hyperlipidemia (7) MILO (obstructive sleep apnea) SNOMED Code(s): 43597607 ICD Code: G47.33 - OBSTRUCTIVE SLEEP APNEA (ADULT) (PEDIATRIC) Status: Chronic Current Visit: No (8) Obesity SNOMED Code(s): 322854189, 693228932 ICD Code: E66.9 - OBESITY, UNSPECIFIED Status: Chronic Current Visit: No Qualifiers: Obesity type: due to excess calories Obesity classification: adult class 3 (BMI >= 40) Serious obesity comorbidity presence: with serious comorbidity (9) Osteoarthritis SNOMED Code(s): 277592332 ICD Code: M19.90 - UNSPECIFIED OSTEOARTHRITIS, UNSPECIFIED SITE Status: Chronic Current Visit: No Qualifiers: Osteoarthritis location: multiple joints Osteoarthritis type: primary Qualified Code(s): M15.0 - Primary generalized (osteo)arthritis (10) Restless leg SNOMED Code(s): 64783971 ICD Code: G25.81 - RESTLESS LEGS SYNDROME Status: Chronic Priority: Low Current Visit: No Problem List Initiated/Reviewed/Updated: Yes Orders Last 24hrs: Active Orders 24 hr Category Date Time Status Admission Status [Patient Status] [ADT] Routine ADT 04/20/19 15:12 Active Notify Provider Vital Signs [RC] ASDIRECTED Care 04/20/19 15:34 Ordered Oxygen Therapy [RC] PRN Care 04/20/19 15:34 Ordered Up With Assistance [RC] ASDIRECTED Care 04/20/19 15:34 Ordered Vital Signs [RC] PER UNIT ROUTINE Care 04/20/19 15:34 Ordered PT Evaluation and Treatment [CONS] Routine Cons 04/20/19 15:34 Ordered Regular Diet [DIET] Diet 04/20/19 Dinner Ordered ARIPiprazole [Aripiprazole] Med 04/20/19 20:00 Ordered 15 mg PO BEDTIME Acetaminophen [Tylenol Extra Strength] Med 04/20/19 15:35 Ordered 1,000 mg PO Q6H PRN Aspirin [Halfprin] Med 04/21/19 08:00 Ordered 81 mg PO DAILY Benztropine [Cogentin] Med 04/20/19 20:00 Ordered 1 mg PO BEDTIME Desmopressin [Desmopressin] Med 04/20/19 20:00 Ordered 0.1 mg PO BEDTIME Gabapentin [Neurontin] Med 04/20/19 20:00 Ordered 300 mg PO BEDTIME Multivitamin [Multi-Vitamin Daily] Med 04/21/19 08:00 Ordered 1 tab PO DAILY Simvastatin [Zocor] Med 04/20/19 20:00 Ordered 10 mg PO BEDTIME Vilazodone Hydrochloride [Viibryd] Med 04/21/19 08:00 Ordered 40 mg PO DAILY buPROPion HCl [Wellbutrin Xl] Med 04/21/19 08:00 Ordered 300 mg PO DAILY buPROPion [Wellbutrin XL] Med 04/20/19 20:00 Ordered 150 mg PO BEDTIME lamoTRIgine [Lamotrigine] Med 04/20/19 20:00 Ordered 150 mg PO BID metFORMIN [Glucophage XR] Med 04/20/19 18:00 Ordered 250 mg PO BIDMEALS predniSONE Med 04/21/19 08:00 Ordered 60 mg PO WITHBREAKFAST Anticoagulation Contraindications VTE [AST] Routine Oth 04/20/19 15:34 Ordered Resuscitation Status Routine Resus Stat 04/20/19 15:34 Ordered Medication Orders Acetaminophen (Tylenol Extra Strength) 1,000 mg PO Q6H PRN PRN Reason: Pain Aspirin (Halfprin) 81 mg PO DAILY [facility]EL Bupropion HCl (Wellbutrin Xl) 0 mg PO BEDTIME VEL Gabapentin (Neurontin) 0 mg PO BEDTIME [facility]EL Multivitamins/Minerals (Thera M Plus) 1 tab PO DAILY [facility]EL (Aripiprazole [ Aripiprazole] 15 Mg *Pt Own Med* 0 mg PO BEDTIME [facility]EL (Benztropine [ Cogentin] 1 Mg *Pt Own Med* 1 mg PO BEDTIME VEL (Bupropion Hcl [ Wellbutrin Xl] 300 Mg *Pt Own Med* 0 mg PO DAILY [facility]EL (Desmopressin [ Desmopressin] 0.1 Mg *Pt Own Med* 0 mg PO BEDTIME VEL (Lamotrigine [ Lamotrigine] 150 Mg *Pt Own Med* 0 mg PO BID VEL (Metformin [ Glucophage Xr] 500 Mg *Pt Own Med* 0 mg PO BIDMEALS VEL (Vilazodone Hydrochloride [ Viibryd] 40 Mg *Pt Own Med* 0 mg PO DAILY [facility]EL Prednisone (Prednisone) 60 mg PO WITHBREAKFAST VEL Simvastatin (Zocor) 10 mg PO BEDTIME VEL Assessment/Plan Comment:: 59 yo female admitted with dizziness felt to be secondary to inner ear pathology. #1 Dizziness - Continue prednisone 60 mg daily through tomorrow and then will start tapering on Wednesday. - PT consult. #2 Diabetes - Glucoses have been acceptable despite prednisone. - Will hold off on SSI. - Will resume metformin. #3 Borderline personality disorder #4 Depression #5 Enuresis #6 Hyperlipidemia #7 MILO #8 Obesity #9 OA #10 RLS - Continue home medications. Patient will be admitted to swing bed - anticipate dismissal home tomorrow. Code status is full. VTE prophylaxis is not indicated based on expected short hospital stay.
[2019-04-20] MEDS: METFORMIN 500 MG PO SCH (18:46)
[2019-04-20] MEDS ORDERED: ARIPIPRAZOLE 15 MG PO SCH (20:00)
[2019-04-20] MEDS ORDERED: Gabapentin 300 MG Cap *PT OWN MED PO SCH (20:00)
[2019-04-20] MEDS ORDERED: BUPROPION 150 MG PO SCH (20:00)
[2019-04-20] MEDS ORDERED: BENZTROPINE 1 MG PO SCH (20:00)
[2019-04-20] MEDS: LAMOTRIGINE 150 MG PO SCH (20:55)
[2019-04-21] MEDS ORDERED: BUPROPION 150 MG PO SCH (08:00)
[2019-04-21] MEDS ORDERED: Aspirin 81 MG Tab.EC PO SCH (08:00)
[2019-04-21] MEDS ORDERED: predniSONE 20 MG Tab PO SCH (08:00)
[2019-04-21] MEDS ORDERED: Multivitamins with Iron/Calcium/Folic Acid/Minerals Tab PO SCH (08:00)
[2019-04-21] MEDS ORDERED: BUPROPION HCL 300 MG PO SCH (08:00)
[2019-04-21] MEDS: METFORMIN 500 MG PO SCH (08:08)
[2019-04-21] MEDS: LAMOTRIGINE 150 MG PO SCH (08:10)
--- NOTE | 2019-04-21 11:36 | PCM.DCSUM1 ---
Discharge Summary - Hospital Course Brief History: Ms. Valdez is a 59 yo female who was admitted to swing bed for further PT after an observation admission for dizziness and gait imbalance. - Discharge Data Discharge Date: 04/21/19 Discharge Disposition: Home, Self-Care 01 Condition: Good - Discharge Diagnosis/Problem(s) (1) Dizziness SNOMED Code(s): 295726818, 482005182 ICD Code: R42 - DIZZINESS AND GIDDINESS Status: Acute Current Visit: No (2) Diabetes SNOMED Code(s): 40058087 ICD Code: E11.9 - TYPE 2 DIABETES MELLITUS WITHOUT COMPLICATIONS Status: Chronic Priority: Medium Current Visit: No Qualifiers: Diabetes mellitus type: type 2 Diabetes mellitus lead business analyst insulin use: without lead business analyst use Diabetes mellitus complication status: without complication Qualified Code(s): E11.9 - Type 2 diabetes mellitus without complications (3) Borderline personality disorder SNOMED Code(s): 94217609 ICD Code: F60.3 - BORDERLINE PERSONALITY DISORDER Status: Chronic Current Visit: No (4) Depression SNOMED Code(s): 42868245 ICD Code: F32.9 - MAJOR DEPRESSIVE DISORDER, SINGLE EPISODE, UNSPECIFIED Status: Chronic Priority: Medium Current Visit: No Qualifiers: Depression Type: unspecified Qualified Code(s): F32.9 - Major depressive disorder, single episode, unspecified (5) Enuresis SNOMED Code(s): 392320173 ICD Code: R32 - UNSPECIFIED URINARY INCONTINENCE Status: Chronic Current Visit: No (6) Hyperlipidemia SNOMED Code(s): 37061801 ICD Code: E78.5 - HYPERLIPIDEMIA, UNSPECIFIED Status: Chronic Current Visit: No Qualifiers: Hyperlipidemia type: other hyperlipidemia Qualified Code(s): E78.49 - Other hyperlipidemia; E78.4 - Other hyperlipidemia (7) MILO (obstructive sleep apnea) SNOMED Code(s): 62234662 ICD Code: G47.33 - OBSTRUCTIVE SLEEP APNEA (ADULT) (PEDIATRIC) Status: Chronic Current Visit: No (8) Obesity SNOMED Code(s): 549465147, 989040961 ICD Code: E66.9 - OBESITY, UNSPECIFIED Status: Chronic Current Visit: No Qualifiers: Obesity type: due to excess calories Obesity classification: adult class 3 (BMI >= 40) Serious obesity comorbidity presence: with serious comorbidity (9) Osteoarthritis SNOMED Code(s): 721797071 ICD Code: M19.90 - UNSPECIFIED OSTEOARTHRITIS, UNSPECIFIED SITE Status: Chronic Current Visit: No Qualifiers: Osteoarthritis location: multiple joints Osteoarthritis type: primary Qualified Code(s): M15.0 - Primary generalized (osteo)arthritis (10) Restless leg SNOMED Code(s): 81758491 ICD Code: G25.81 - RESTLESS LEGS SYNDROME Status: Chronic Priority: Low Current Visit: No - Patient Summary/Data Operative Procedure(s) Performed: none Complications: none Consults: Consultations 04/20/19 15:34 PT Evaluation and Treatment [CONS] Routine Labs Pending at D/C: none Recommended Follow-up Testing/Procedures: none Planned Operative Procedure(s) after DC: none Hospital Course: The patient did well and was able to ambulate with only standby assist today. Therefore, she will be discharged home in stable condition to follow up with PT and with me next week. Her hospitalization was otherwise uncomplicated. - Patient Instructions Diet: Usual Diet as Tolerated Activity: Apply Ice, As Tolerated - Discharge Plan *PRESCRIPTION DRUG MONITORING PROGRAM REVIEWED*: No *COPY OF PRESCRIPTION DRUG MONITORING REPORT IN PATIENT AFIA: No Prescriptions/Med Rec: predniSONE See Taper PO WITHBREAKFAST #12 tablet Home Medications: Home Meds ARIPiprazole [Aripiprazole] 15 mg PO BEDTIME 06/14/18 [History] Benztropine [Cogentin] 1 mg PO BEDTIME 06/14/18 [History] Desmopressin 0.1 mg PO BEDTIME 06/14/18 [History] Simvastatin 10 mg PO BEDTIME 06/14/18 [History] Vilazodone Hydrochloride [Viibryd] 40 mg PO DAILY 06/14/18 [History] buPROPion HCl [Wellbutrin Xl] 300 mg PO DAILY 06/14/18 [History] metFORMIN [Glucophage XR] 250 mg PO BIDMEALS 06/14/18 [History] Aspirin [Halfprin] 81 mg PO DAILY 04/18/19 [History] Gabapentin [Neurontin] 300 - 600 mg PO BEDTIME 04/18/19 [History] Multivitamin [Multi-Vitamin Daily] 1 tab PO DAILY 04/18/19 [History] buPROPion [buPROPion XL] 150 mg PO BEDTIME 04/18/19 [History] lamoTRIgine [Lamotrigine] 150 mg PO BID 04/18/19 [History] Acetaminophen [Tylenol Extra Strength] 1,000 mg PO Q6H PRN tablet 04/20/19 [Rx] predniSONE See Taper PO WITHBREAKFAST #12 tablet 04/21/19 [Rx] - Discharge Summary/Plan Comment DC Time >30 min.: No - General Info Date of Service: 04/21/19 Subjective Update: Patient is feeling well this morning and is hoping for d/c. She did well with PT and they feel she is prepared for dismissal home to continue PT as an outpatient. She denies any other concerns or questions today. Her sister is planning to come and stay with her for a few days. She is hoping she can have a few days off of work to continue to recover. - Review of Systems General: Reports: No Symptoms HEENT: Reports: No Symptoms Pulmonary: Reports: No Symptoms Cardiovascular: Reports: No Symptoms Gastrointestinal: Reports: No Symptoms Genitourinary: Reports: No Symptoms Skin: Reports: No Symptoms - Patient Data Vitals - Most Recent: Last Vital Signs Temp 36.3 C 04/21/19 06:00 Pulse 59 L 04/21/19 06:00 Resp 16 04/21/19 06:00 BP 115/65 04/21/19 06:00 Pulse Ox 97 04/21/19 06:00 Weight - Most Recent: 105.233 kg I&O - Last 24 hours: Intake & Output 04/20/19 04/21/19 04/21/19 22:59 06:59 14:59 Intake Total 1160 2500 240 Output Total 2900 500 Balance -1740 2000 240 Lab Results - Last 24 hrs: Laboratory Results - last 24 hr 04/20/19 04/21/19 Range/Units 17:27 06:00 POC Glucose 163 H 86 (74-106) mg/dL Med Orders - Current: Current Medications Acetaminophen (Tylenol Extra Strength) 1,000 mg PO Q6H PRN PRN Reason: Pain Last Admin: 04/20/19 22:26 Dose: 1,000 mg Aspirin (Halfprin) 81 mg PO DAILY VEL Last Admin: 04/21/19 08:17 Dose: 81 mg Bupropion HCl (Wellbutrin Xl) 0 mg PO DAILY VEL Last Admin: 04/21/19 08:11 Dose: 150 mg Gabapentin (Neurontin) 0 mg PO BEDTIME VEL Last Admin: 04/20/19 20:53 Dose: 300 mg Multivitamins/Minerals (Thera M Plus) 1 tab PO DAILY [facility] Last Admin: 04/21/19 08:17 Dose: 1 tab (Aripiprazole [ Aripiprazole] 15 Mg *Pt Own Med* 0 mg PO BEDTIME [facility] Last Admin: 04/20/19 20:58 Dose: 15 mg (Benztropine [ Cogentin] 1 Mg *Pt Own Med* 1 mg PO BEDTIME [facility] Last Admin: 04/20/19 20:58 Dose: 1 mg (Bupropion Hcl [ Wellbutrin Xl] 300 Mg *Pt Own Med* 0 mg PO DAILY [facility] Last Admin: 04/21/19 08:10 Dose: 300 mg (Desmopressin [ Desmopressin] 0.1 Mg *Pt Own Med* 0 mg PO BEDTIME [facility] Last Admin: 04/20/19 20:59 Dose: 0.1 mg (Lamotrigine [ Lamotrigine] 150 Mg *Pt Own Med* 0 mg PO BID [facility] Last Admin: 04/21/19 08:10 Dose: 150 mg (Metformin [ Glucophage Xr] 500 Mg *Pt Own Med* 0 mg PO BIDMEALS [facility] Last Admin: 04/21/19 08:08 Dose: 250 mg (Vilazodone Hydrochloride [ Viibryd] 40 Mg *Pt Own Med* 0 mg PO DAILY [facility] Last Admin: 04/21/19 08:08 Dose: 40 mg Prednisone (Prednisone) 60 mg PO WITHBREAKFAST [facility] Last Admin: 04/21/19 08:17 Dose: 60 mg Simvastatin (Zocor) 10 mg PO BEDTIME [facility] Last Admin: 04/20/19 20:55 Dose: 10 mg Discontinued Medications Bupropion HCl (Wellbutrin Xl) 0 mg PO BEDTIME [facility] Last Admin: 04/20/19 21:41 Dose: Not Given - Exam General: Reports: Alert, Oriented, Cooperative, No Acute Distress HEENT: Reports: Pupils Equal, Pupils Reactive, Mucous Membr. Moist/[place] Neck: Reports: Supple, Trachea Midline, No Thyromegaly. Denies: Lymphadenopathy Lungs: Reports: Clear to Auscultation, Normal Respiratory Effort Cardiovascular: Reports: Regular Rate, Regular Rhythm, No Murmurs GI/Abdominal Exam: Normal Bowel Sounds, Soft, Non-Tender, No Organomegaly, No Distention, No Mass Extremities: Non-Tender, No Pedal Edema, Normal Capillary Refill Skin: Reports: Warm, Dry, Intact Neurological: Reports: No New Focal Deficit *Q Meaningful Use (DIS) - VTE *Q VTE Anticoagulation Contraindications: Med/TX Not Indicated/Need
== END 2019-04-21 12:50 | disposition home or self-care (01) | DRG 149 ==
LOC: VM.MS 15:15 → UNDOADMIN 15:15
PROVIDERS: ADMIT Family Medicine; ATTEND Family Medicine
DX: R42 Dizziness and giddiness (principal); J30.9 Allergic rhinitis, unspecified; E78.00 Pure hypercholesterolemia, unspecified; K59.09 Other constipation; G89.29 Other chronic pain; M19.91 Primary osteoarthritis, unspecified site; F32.9 Major depressive disorder, single episode, unspecified; F60.3 Borderline personality disorder; R26.81 Unsteadiness on feet; E11.9 Type 2 diabetes mellitus without complications; E66.9 Obesity, unspecified; R32 Unspecified urinary incontinence; E78.49 Other hyperlipidemia; G47.33 Obstructive sleep apnea (adult) (pediatric); G25.81 Restless legs syndrome; Z79.84 Long term (current) use of oral hypoglycemic drugs; Z79.82 Long term (current) use of aspirin; Z68.41 Body mass index [BMI] 40.0-44.9, adult; Z79.52 Long term (current) use of systemic steroids; Z79.899 Other long term (current) drug therapy
CPT/HCPCS: 82962; 97116-GP; A9270-GY

== ENCOUNTER 2019-05-25 10:51 | Emergency (ER) | payer MEDICARE, MEDICAID ==
[2019-05-25] MEDS ORDERED: Morphine 4 MG/ML Syringe IVPUSH ONE (11:36)
[2019-05-25] MEDS ORDERED: Ondansetron 4 MG/2 ML SDV IVPUSH ONE (11:36)
[2019-05-25] MEDS ORDERED: Sodium Chloride 0.9% 10 ML Syringe FLUSH PRN (11:36)
--- NOTE | 2019-05-25 11:53 | EDM.PDOC ---
ED HPI GENERAL MEDICAL PROBLEM - General Chief Complaint: Lower Extremity Injury/Pain Stated Complaint: ER Time Seen by Provider: 05/25/19 11:32 Source of Information: Reports: Patient History Limitations: Reports: No Limitations - History of Present Illness INITIAL COMMENTS - FREE TEXT/NARRATIVE: Patient has been undergoing physical therapy for right leg pain and muscle spasms. She was doing a session today when the spasms and pain became to much and she needed to present to the ED. Brought down by therapist. She states she has not fallen, no acute or remote trauma. I did see patient back in 2018 for similar complaints. Has had x-ray of the pelvis which have been negative for hip fracture. This was last performed 2 weeks ago. She denies any radicular pain. States all pain is in the anterior groin and quadricep area. Very minimal lower back pain. Denies that pain originates in lower back with radiation to the front. Some arthritis found on x-ray. Denies fever, chest pain, sob, headache, no urinary or bowel incontinence. Denies GI/ symptoms. No blood in urine or stool. No abdominal pain. Left leg is free of pain. Did walk in with walker. Onset: Gradual Duration: Chronic Location: Reports: Lower Extremity, Right Quality: Reports: Other (she is unable to describe her pain) Severity: Moderate Worsens with: Reports: Movement Associated Symptoms: Reports: No Other Symptoms - Related Data Allergies Allergy/AdvReac Type Severity Reaction Status Date / Time No Known Allergies Allergy Verified 05/25/19 12:05 Home Meds: Home Meds ARIPiprazole [Aripiprazole] 15 mg PO BEDTIME 06/14/18 [History] Benztropine [Cogentin] 1 mg PO BEDTIME 06/14/18 [History] Desmopressin 0.1 mg PO BEDTIME 06/14/18 [History] Simvastatin 10 mg PO BEDTIME 06/14/18 [History] Vilazodone Hydrochloride [Viibryd] 40 mg PO DAILY 06/14/18 [History] buPROPion HCl [Wellbutrin Xl] 300 mg PO DAILY 06/14/18 [History] metFORMIN [Glucophage XR] 250 mg PO BIDMEALS 06/14/18 [History] Aspirin [Halfprin] 81 mg PO DAILY 04/18/19 [History] Gabapentin [Neurontin] 300 - 600 mg PO BEDTIME 04/18/19 [History] Multivitamin [Multi-Vitamin Daily] 1 tab PO DAILY 04/18/19 [History] buPROPion [buPROPion XL] 150 mg PO BEDTIME 04/18/19 [History] lamoTRIgine [Lamotrigine] 150 mg PO BID 04/18/19 [History] Acetaminophen [Tylenol Extra Strength] 1,000 mg PO Q6H PRN tablet 04/20/19 [Rx] predniSONE See Taper PO WITHBREAKFAST #12 tablet 04/21/19 [Rx] Past Medical History HEENT History: Reports: Allergic Rhinitis, Other (See Below) Other HEENT History: myopia. astigmatism Cardiovascular History: Reports: High Cholesterol Respiratory History: Reports: Sleep Apnea Gastrointestinal History: Reports: Chronic Constipation Genitourinary History: Reports: Other (See Below) Other Genitourinary History: urge incontinence. nonorganic enuresis Musculoskeletal History: Reports: Back Pain, Chronic, Other (See Below) Other Musculoskeletal History: DJD. tendinitis of right shoulder. left achilles tendinitis. hip pain Neurological History: Reports: Other (See Below) Other Neuro History: memory loss Psychiatric History: Reports: Bipolar, Depression, Other (See Below) Other Psychiatric History: Borderline Personality Disorder. Dissociative Identity Disorder. social maladjustment Endocrine/Metabolic History: Reports: Diabetes, Type II, Obesity/BMI 30+ Hematologic History: Reports: None Immunologic History: Reports: None Oncologic (Cancer) History: Reports: None Dermatologic History: Reports: None - Infectious Disease History Infectious Disease History: Reports: None Social & Family History - Family History GI: Reports: Cirrhosis Endocrine/Metabolic: Reports: Diabetes, type II - Caffeine Use Caffeine Use: Reports: None - Living Situation & Occupation Living situation: Reports: Single, Alone Occupation: Disabled Review of Systems - Review of Systems Review Of Systems: See Below Constitutional: Reports: No Symptoms Eyes: Reports: No Symptoms Ears: Reports: No Symptoms Nose: Reports: No Symptoms Mouth/Throat: Reports: No Symptoms Respiratory: Reports: No Symptoms Cardiovascular: Reports: No Symptoms GI/Abdominal: Reports: No Symptoms Genitourinary: Reports: No Symptoms Musculoskeletal: Reports: Leg Pain Skin: Reports: No Symptoms Neurological: Reports: No Symptoms Psychiatric: Reports: No Symptoms ED EXAM, GENERAL - Physical Exam Exam: See Below Exam Limited By: No Limitations General Appearance: Alert, WD/WN, Mild Distress Eye Exam: Bilateral Eye: EOMI, Normal Inspection Throat/Mouth: Normal Inspection, Normal Lips, Normal Teeth, Normal Gums, Normal Oropharynx, Normal Voice, No Airway Compromise Head: Atraumatic, Normocephalic Neck: Normal Inspection, Supple, Non-Tender, Full Range of Motion Respiratory/Chest: No Respiratory Distress, Lungs Clear, Normal Breath Sounds, No Accessory Muscle Use, Chest Non-Tender Cardiovascular: Normal Peripheral Pulses, Regular Rate, Rhythm, No Edema, No Gallop, No JVD, No Murmur, No Rub Peripheral Pulses: 2+: Posterior Tibial (L), Posterior Tibial (R), Dorsalis Pedis (L), Dorsalis Pedis (R) GI/Abdominal: Normal Bowel Sounds, Soft, Non-Tender, No Organomegaly, No Distention, No Abnormal Bruit, No Mass Back Exam: Normal Inspection, Full Range of Motion Extremities: Normal Inspection, Limited Range of Motion (right leg) Neurological: Alert, Oriented, CN II-XII Intact, Sensory/Motor Deficit (patient states she is unable to lift her right leg off the wheelchair foot rest due to pain) Psychiatric: Normal Affect, Normal Mood Skin Exam: Warm, Dry, Intact, Normal Color, No Rash Lymphatic: No Adenopathy Course - Orders/Labs/Meds Orders: Active Orders 24 hr Category Date Time Status Lumbar Spine wo Cont [CT] Stat Exams 05/25/19 11:32 Ordered Pelvis wo Cont [CT] Stat Exams 05/25/19 11:32 Ordered C-REACTIVE PROTEIN [CHEM] Stat Lab 05/25/19 11:36 Ordered CBC WITH AUTO DIFF [HEME] Stat Lab 05/25/19 11:36 Ordered COMPREHENSIVE METABOLIC PN,CMP [CHEM] Stat Lab 05/25/19 11:36 Ordered LACTIC ACID [CHEM] Stat Lab 05/25/19 11:37 Ordered MAGNESIUM [CHEM] Stat Lab 05/25/19 11:36 Ordered SEDIMENTATION RATE AUTO [HEME] Stat Lab 05/25/19 11:36 Ordered Sodium Chloride 0.9% [Saline Flush] Med 05/25/19 11:36 Active 10 ml FLUSH ASDIRECTED PRN Saline Lock Insert [OM.PC] Routine Oth 05/25/19 11:36 Ordered Medication Orders Sodium Chloride (Saline Flush) 10 ml FLUSH ASDIRECTED PRN PRN Reason: Keep Vein Open Meds: Medications Generic Name Dose Route Start Last Admin Trade Name Viviane PRN Reason Stop Dose Admin Sodium Chloride 10 ml 05/25/19 11:36 Saline Flush FLUSH ASDIRECTED PRN Keep Vein Open Discontinued Medications Generic Name Dose Route Start Last Admin Trade Name Viviane PRN Reason Stop Dose Admin Diazepam 2.5 mg 05/25/19 11:36 Valium IVPUSH 05/25/19 11:37 STAT ONE Morphine Sulfate 4 mg 05/25/19 11:36 Morphine IVPUSH 05/25/19 11:37 ONETIME ONE Ondansetron HCl 4 mg 05/25/19 11:36 Zofran IVPUSH 05/25/19 11:37 ONETIME ONE Departure - Departure Time of Disposition: 13:21 Disposition: Home, Self-Care 01 Condition: Good Clinical Impression: Osteoarthritis of right hip - Discharge Information *PRESCRIPTION DRUG MONITORING PROGRAM REVIEWED*: No *COPY OF PRESCRIPTION DRUG MONITORING REPORT IN PATIENT AFIA: No Instructions: Heat Therapy, Nxty-[id number], Cryotherapy, [id number] Forms: ED Department Discharge Additional Instructions: Plan 1. Take medications as prescribed 2. MRI on Wednesday. They will call either today or tomorrow with a time 3. Follow up appointment with Dr. Lazar for review of MRI results and plan 4. Stay well hydrated. Magnesium slightly low today and you did receive oral magnesium. All other labs and electrolytes were normal. 5. Please call if you have any additional questions or concerns - Problem List & Annotations (1) Osteoarthritis of right hip SNOMED Code(s): 742602482020324 Code(s): M16.11 - UNILATERAL PRIMARY OSTEOARTHRITIS, RIGHT HIP Status: Acute Priority: Medium Current Visit: Yes Qualifiers: Osteoarthritis type: primary Qualified Code(s): M16.11 - Unilateral primary osteoarthritis, right hip - Problem List Review Problem List Initiated/Reviewed/Updated: Yes - My Orders Last 24 Hours: My Active Orders 05/25/19 11:32 Lumbar Spine wo Cont [CT] Stat Pelvis wo Cont [CT] Stat 05/25/19 11:36 C-REACTIVE PROTEIN [CHEM] Stat CBC WITH AUTO DIFF [HEME] Stat COMPREHENSIVE METABOLIC PN,CMP [CHEM] Stat MAGNESIUM [CHEM] Stat SEDIMENTATION RATE AUTO [HEME] Stat Sodium Chloride 0.9% [Saline Flush] 10 ml FLUSH ASDIRECTED PRN Saline Lock Insert [OM.PC] Routine 05/25/19 11:37 LACTIC ACID [CHEM] Stat - Assessment/Plan Last 24 Hours: My Active Orders 05/25/19 11:32 Lumbar Spine wo Cont [CT] Stat Pelvis wo Cont [CT] Stat 05/25/19 11:36 C-REACTIVE PROTEIN [CHEM] Stat CBC WITH AUTO DIFF [HEME] Stat COMPREHENSIVE METABOLIC PN,CMP [CHEM] Stat MAGNESIUM [CHEM] Stat SEDIMENTATION RATE AUTO [HEME] Stat Sodium Chloride 0.9% [Saline Flush] 10 ml FLUSH ASDIRECTED PRN Saline Lock Insert [OM.PC] Routine 05/25/19 11:37 LACTIC ACID [CHEM] Stat Assessment:: right hip osteoarthritis Plan: Plan 1. Take medications as prescribed 2. MRI on Wednesday. They will call either today or tomorrow with a time 3. Follow up appointment with Dr. Lazar for review of MRI results and plan 4. Stay well hydrated. Magnesium slightly low today and you did receive oral magnesium. All other labs and electrolytes were normal. 5. Please call if you have any additional questions or concerns
[2019-05-25] MEDS ORDERED: Ketorolac 30 MG/ML SDV IVPUSH ONE (12:02)
[2019-05-25 12:25] LABS: ANION GAP 15.6 mmol/L (10-20); CHLORIDE,CL 103 mmol/L (98-107); SODIUM,NA 138 mmol/L (136-145)
[2019-05-25] MEDS ORDERED: Magnesium Chloride 64 MG Tab.ER PO ONE (12:42)
--- NOTE | 2019-05-25 13:02 | CT ---
[id number] CT/CT Lumbar Spine WO IV EXAM: LUMBAR SPINE CT WITHOUT CONTRAST INDICATION: Pain with inability to move right leg. COMPARISON: None. DISCUSSION: The lumbar vertebral bodies are normal in height and alignment. No fracture or suspicious bone lesion. The paraspinal soft tissues are unremarkable. T12-L1: Mild annular bulging and bilateral facet degeneration without significant central or foraminal stenosis. L1-L2: Mild broad-based disc osteophyte complex and bilateral facet degeneration contribute to minimal central stenosis. L2-L3: A mild broad-based disc bulge and bilateral facet degeneration contribute to sofd-it-yptuzftu central and mild bilateral foraminal stenosis. L3-L4: A chlo-xg-dwawtzdb broad-based disc bulge and moderate to advanced bilateral facet degeneration contribute to moderate central and rgcx-wi-vperjvkl bilateral foraminal stenosis. L4-L5: A ciur-qn-ykztpkqx broad-based disc bulge and advanced bilateral facet degeneration contribute to purs-or-gkayncvb central and bilateral foraminal stenosis. L5-S1: A mild broad-based disc bulge and bilateral facet degeneration contribute to mild central and bilateral foraminal stenosis. IMPRESSION: 1. Mild to moderate multilevel lumbar spondylosis. Edwin Funes MD 05/25/19 1629 Thank you for allowing us to participate in the care of your patient.
--- NOTE | 2019-05-25 13:08 | CT ---
[id number] CT/CT Pelvis WO IV EXAM: PELVIS CT WITHOUT CONTRAST INDICATION: Pain and inability to move right lower extremity. COMPARISON: None. DISCUSSION: Mild osteoarthritis of the hips and sacroiliac joints. Mild to moderate symphysis pubis osteoarthritis. No fracture, dislocation or suspicious osseous lesion. Hysterectomy. The imaged soft tissues are otherwise unremarkable. Lower lumbar spondylosis as characterized on the dedicated lumbar spine examination. IMPRESSION: 1. Mild osteoarthritis of the hips and sacroiliac joints. No acute findings. Edwin Funes MD 05/25/19 3151 Thank you for allowing us to participate in the care of your patient.
== END 2019-05-25 13:27 | disposition home or self-care (01) ==
LOC: VM.ED 10:51
DX: M16.11 Unilateral primary osteoarthritis, right hip (principal); E78.00 Pure hypercholesterolemia, unspecified; F31.9 Bipolar disorder, unspecified; E11.9 Type 2 diabetes mellitus without complications; Z79.899 Other long term (current) drug therapy
CPT/HCPCS: 36415; 72131; 72192; 80053; 83605; 83735; 85025; 85652; 86140; 96374; 96375; 99284; A9270; J1885; J2270; J2405; J3360; 99283-GF

== ENCOUNTER 2020-03-22 10:40 | Emergency (ER) | payer MEDICARE, MEDICAID ==
[2020-03-22] MEDS: LORazepam 2 MG/ML SDV IM ONE (10:50)
[2020-03-22] MEDS: Haloperidol Lactate 5 MG/ML SDV IM ONE (11:41)
--- NOTE | 2020-03-22 11:50 | EDM.PDOC ---
ED HPI GENERAL MEDICAL PROBLEM - General Chief Complaint: Behavioral/Psych Time Seen by Provider: 03/22/20 10:55 Source of Information: Reports: EMS History Limitations: Reports: No Limitations - History of Present Illness INITIAL COMMENTS - FREE TEXT/NARRATIVE: presents to ER via EMS with severe anxiety. Pt. has a history of borderline personality disorder, dissociative personality disorder,depression, somatoform disorder, and bipolar affective psychosis in the past. She is on numerous medications including clonazepam, provigil, lamictal for mood stabilization, and gabapentin and is seeing case management and counselors from [facility]. PCP is Dr. Lazar. Pt. was crying and yelling in her apartment for EMS was summoned for a welfare check. For the most part, the patient is unwilling to communicate with medical staff and is resistive to care. She is having some upper respiratory symptoms and was swabbed for covid 19 yesterday (test is pending) and according to her counselor, this has been stressful for her. Pt. engages in self harm. Her sister states that she is concerned the patient will engage in self harm and she has talked about it recently. According to her [facility], she has been struggling with worsening mood, poor response to medications, inconsistent sleep schedule, excessive sleeping during the day, all of which is contributing to her breakdown today. At the time of scribing this, patient is yelling and crying and unwilling to provide a ROS. She was able to indicate that she has not experienced any physical injury or trauma. She indicated to me that she was not suicidal, but stated to nursing that she would potentially try to overdose on her medications if given the chance. Onset: Today Onset Date: 03/22/20 - Related Data Allergies Allergy/AdvReac Type Severity Reaction Status Date / Time No Known Allergies Allergy Verified 12/16/19 21:48 Home Meds: Home Meds ARIPiprazole [Aripiprazole] 15 mg PO BEDTIME 06/14/18 [History] Benztropine [Cogentin] 1 mg PO BEDTIME 06/14/18 [History] Desmopressin 0.1 mg PO BEDTIME 06/14/18 [History] Simvastatin 10 mg PO BEDTIME 06/14/18 [History] Vilazodone HCl [Viibryd] 40 mg PO DAILY 06/14/18 [History] buPROPion HCL [Wellbutrin Xl] 300 mg PO DAILY 06/14/18 [History] metFORMIN [Glucophage XR] 250 mg PO BIDMEALS 06/14/18 [History] Aspirin [Halfprin] 81 mg PO DAILY 04/18/19 [History] Gabapentin [Neurontin] 300 - 600 mg PO BEDTIME 04/18/19 [History] Multivitamin [Multi-Vitamin Daily] 1 tab PO DAILY 04/18/19 [History] buPROPion [buPROPion XL] 150 mg PO BEDTIME 04/18/19 [History] lamoTRIgine [Lamotrigine] 150 mg PO BID 04/18/19 [History] Acetaminophen [Tylenol Extra Strength] 1,000 mg PO Q6H PRN tablet 04/20/19 [Rx] predniSONE See Taper PO WITHBREAKFAST #12 tablet 04/21/19 [Rx] Past Medical History HEENT History: Reports: Allergic Rhinitis, Other (See Below) Other HEENT History: myopia. astigmatism Cardiovascular History: Reports: High Cholesterol Respiratory History: Reports: Sleep Apnea Other Respiratory History: CPAP @ night Gastrointestinal History: Reports: Chronic Constipation Genitourinary History: Reports: Other (See Below) Other Genitourinary History: urge incontinence. nonorganic enuresis [place] History: Reports: None Musculoskeletal History: Reports: Back Pain, Chronic, Other (See Below) Other Musculoskeletal History: DJD. tendinitis of right shoulder. left achilles tendinitis. hip pain Neurological History: Reports: Other (See Below) Other Neuro History: memory loss Psychiatric History: Reports: Bipolar, Depression, PTSD, Other (See Below) Other Psychiatric History: Borderline Personality Disorder. Dissociative Identity Disorder. social maladjustment Endocrine/Metabolic History: Reports: Diabetes, Type II, Obesity/BMI 30+ Insulin Pump Model and Housekeeping Associate: None Hematologic History: Reports: None Immunologic History: Reports: None Oncologic (Cancer) History: Reports: None Dermatologic History: Reports: None - Infectious Disease History Infectious Disease History: Reports: None - Past Surgical History Head Surgeries/Procedures: Reports: None Social & Family History - Family History Family Medical History: Noncontributory GI: Reports: Cirrhosis Endocrine/Metabolic: Reports: Diabetes, type II - Caffeine Use Caffeine Use: Reports: None - Living Situation & Occupation Living situation: Reports: Single, Alone Occupation: Disabled ED ROS GENERAL - Review of Systems Review Of Systems: Comprehensive ROS is negative, except as noted in HPI. ED EXAM, GENERAL - Physical Exam Exam: See Below Exam Limited By: No Limitations General Appearance: Alert, WD/WN, No Apparent Distress Eye Exam: Bilateral Eye: EOMI, PERRL Throat/Mouth: Normal Voice, No Airway Compromise Head: Atraumatic, Normocephalic Neck: Normal Inspection, Supple, Non-Tender Respiratory/Chest: No Respiratory Distress, Lungs Clear, Normal Breath Sounds, No Accessory Muscle Use, Chest Non-Tender Cardiovascular: Normal Peripheral Pulses, Regular Rate, Rhythm, No Edema GI/Abdominal: Normal Bowel Sounds, Soft, Non-Tender, No Organomegaly, No Distention, No Mass (Female) Exam: Deferred Rectal (Female) Exam: Deferred Back Exam: Normal Inspection, Full Range of Motion Extremities: Normal Inspection, Normal Range of Motion, Normal Capillary Refill Neurological: Alert, Oriented, CN II-XII Intact, Normal Cognition, Normal Gait, Normal Reflexes, No Motor/Sensory Deficits Psychiatric: Anxious, Tearful Skin Exam: Warm, Dry, Intact, Normal Color, No Rash Lymphatic: No Adenopathy Course - Vital Signs Last Recorded V/S: Last Vital Signs Temp 36.6 C 03/22/20 10:55 Pulse 80 03/22/20 11:52 Resp 28 H 03/22/20 11:52 BP 117/99 H 03/22/20 11:52 Pulse Ox 94 L 03/22/20 11:52 - Orders/Labs/Meds Labs: Laboratory Tests 03/22/20 03/22/20 03/22/20 Range/Units 11:12 11:19 11:19 WBC 5.7 (4.0-10.0) x10^3/uL RBC 4.56 (4.00-5.50) x10^6/uL Hgb 13.5 D (12.0-16.0) g/dL Hct 38.2 (33.0-47.0) % MCV 83.8 D (78.0-93.0) fL MCH 29.6 (26.0-32.0) pg MCHC 35.3 (32.0-36.0) g/dL RDW Coeff of Bam 12.7 (10.0-15.0) % Plt Count 171 (130-400) x10^3/uL Neut % (Auto) 51.2 (50.0-80.0) % Lymph % (Auto) 37.2 (25.0-50.0) % Grand % (Auto) 9.4 (2.0-11.0) % Eos % (Auto) 1.8 (0.0-4.0) % Baso % (Auto) 0.4 (0.2-1.2) % PT 9.9 (9.5-12.3) SEC INR 0.9 L (2.0-3.5) Sodium (136-145) mmol/L Potassium (3.5-5.1) mmol/L Chloride (98-107) mmol/L Carbon Dioxide (21-32) mmol/L Anion Gap (10-20) mmol/L BUN (7-18) mg/dL Creatinine (0.55-1.02) mg/dL Est Cr Clr Drug Dosing mL/min Estimated GFR (MDRD) Glucose (74-106) mg/dL Calcium (8.5-10.1) mg/dL Corrected Calcium (8.5-10.1) mg/dL Magnesium (1.8-2.4) mg/dL Total Bilirubin (0.2-1.0) mg/dL AST (15-37) U/L ALT (14-59) U/L Alkaline Phosphatase (46-116) U/L Total Protein (6.4-8.2) g/dL Albumin (3.4-5.0) g/dL Globulin Albumin/Globulin Ratio Urine Color (YELLOW) Urine Appearance (CLEAR) Urine pH (5.0-8.0) Ur Specific Lane Urine Protein (NEGATIVE) mg/dL Urine Glucose (UA) (NEGATIVE) mg/dL Urine Ketones (NEGATIVE) mg/dL Urine Occult Blood (NEGATIVE) Urine Nitrite (NEGATIVE) Urine Bilirubin (NEGATIVE) Urine Urobilinogen (0.2) EU/dL Ur Leukocyte Esterase (NEGATIVE) Urine Opiates Screen (NEGATIVE) Ur Buprenorphine Scrn (NEGATIVE) Ur Oxycodone Screen (NEGATIVE) Ur EDDP (Meth Metab) (NEGATIVE) Urine Methadone Screen (NEGATIVE) Ur Barbiturates Screen (NEGATIVE) Ur Tricyclics Screen (NEGATIVE) Ur Phencyclidine Scrn (NEGATIVE) Ur Amphetamine Screen (NEGATIVE) U Methamphetamines Scrn (NEGATIVE) Urine MDMA Screen (NEGATIVE) U Benzodiazepines Scrn (NEGATIVE) U Cocaine Metab Screen (NEGATIVE) U Marijuana (THC) Screen (NEGATIVE) Ethyl Alcohol (0-3) mg/dL SARS-CoV-2 RNA (RT-PCR) Negative (NEGATIVE) 03/22/20 03/22/20 03/22/20 Range/Units 11:19 12:49 12:49 WBC (4.0-10.0) x10^3/uL RBC (4.00-5.50) x10^6/uL Hgb (12.0-16.0) g/dL Hct (33.0-47.0) % MCV (78.0-93.0) fL MCH (26.0-32.0) pg MCHC (32.0-36.0) g/dL RDW Coeff of Bam (10.0-15.0) % Plt Count (130-400) x10^3/uL Neut % (Auto) (50.0-80.0) % Lymph % (Auto) (25.0-50.0) % Grand % (Auto) (2.0-11.0) % Eos % (Auto) (0.0-4.0) % Baso % (Auto) (0.2-1.2) % PT (9.5-12.3) SEC INR (2.0-3.5) Sodium 144 (136-145) mmol/L Potassium 4.2 (3.5-5.1) mmol/L Chloride 105 (98-107) mmol/L Carbon Dioxide 25 (21-32) mmol/L Anion Gap 18.2 (10-20) mmol/L BUN 13 (7-18) mg/dL Creatinine 1.0 (0.55-1.02) mg/dL Est Cr Clr Drug Dosing 55.31 mL/min Estimated GFR (MDRD) 56 Glucose 111 H (74-106) mg/dL Calcium 10.0 (8.5-10.1) mg/dL Corrected Calcium 9.76 (8.5-10.1) mg/dL Magnesium 1.6 L (1.8-2.4) mg/dL Total Bilirubin 0.5 (0.2-1.0) mg/dL AST 26 (15-37) U/L ALT 35 (14-59) U/L Alkaline Phosphatase 91 (46-116) U/L Total Protein 8.5 H (6.4-8.2) g/dL Albumin 4.3 (3.4-5.0) g/dL Globulin 4.2 Albumin/Globulin Ratio 1.02 Urine Color Yellow (YELLOW) Urine Appearance Clear (CLEAR) Urine pH 6.0 (5.0-8.0) Ur Specific Lane 1.025 Urine Protein Negative (NEGATIVE) mg/dL Urine Glucose (UA) Negative (NEGATIVE) mg/dL Urine Ketones Negative (NEGATIVE) mg/dL Urine Occult Blood Negative (NEGATIVE) Urine Nitrite Negative (NEGATIVE) Urine Bilirubin Small H (NEGATIVE) Urine Urobilinogen 0.2 (0.2) EU/dL Ur Leukocyte Esterase Negative (NEGATIVE) Urine Opiates Screen Negative (NEGATIVE) Ur Buprenorphine Scrn Negative (NEGATIVE) Ur Oxycodone Screen Negative (NEGATIVE) Ur EDDP (Meth Metab) Negative (NEGATIVE) Urine Methadone Screen Negative (NEGATIVE) Ur Barbiturates Screen Negative (NEGATIVE) Ur Tricyclics Screen Negative (NEGATIVE) Ur Phencyclidine Scrn Negative (NEGATIVE) Ur Amphetamine Screen Negative (NEGATIVE) U Methamphetamines Scrn Negative (NEGATIVE) Urine MDMA Screen Negative (NEGATIVE) U Benzodiazepines Scrn Negative (NEGATIVE) U Cocaine Metab Screen Negative (NEGATIVE) U Marijuana (THC) Screen Negative (NEGATIVE) Ethyl Alcohol < 3 (0-3) mg/dL SARS-CoV-2 RNA (RT-PCR) (NEGATIVE) Meds: Medications Discontinued Medications Generic Name Dose Route Start Last Admin Trade Name Freq PRN Reason Stop Dose Admin Haloperidol Lactate 5 mg 03/22/20 11:35 03/22/20 11:41 Haldol IM 03/22/20 11:36 5 mg STAT ONE Administration Lorazepam 2 mg 03/22/20 10:43 03/22/20 10:50 Ativan IM 03/22/20 10:44 2 mg STAT ONE Administration - Re-Assessments/Exams Free Text/Narrative Re-Assessment/Exam: Pt. was given 2 mg ativan IM and 5 mg haldol IM. Reports feeling "better". She is no longer agitated and is sleeping intermittently. Was able to eat lunch. Has been up and ambulatory to bathroom. Departure - Departure Time of Disposition: 15:44 Disposition: DC/Tfer to Psych Hosp/Unit 65 Clinical Impression: Depressive disorder, Panic disorder - Discharge Information Referrals: Rani Lazar MD [Primary Care Provider] - Forms: ED Department Discharge, Interfacility Transfer EMTALA Sepsis Event Note - Evaluation Sepsis Screening Result: No Definite Risk - Focused Exam Vital Signs: Vital Signs Temp Pulse Resp BP Pulse Ox 03/22/20 11:52 80 28 H 117/99 H 94 L 03/22/20 10:55 36.6 C 92 34 H 89/60 L 94 L Date Exam was Performed: 03/22/20 Time Exam was Performed: 15:44 - Problem List Review Problem List Initiated/Reviewed/Updated: Yes - Assessment/Plan Plan: Screener from [facility] has visited with the patient in ER. Pt. will be transported to [facility] via [facility] staff for admission over the weekend. All questions were answered.
[2020-03-22 11:51] LABS: ANION GAP 18.2 mmol/L (10-20); CHLORIDE,CL 105 mmol/L (98-107); SODIUM,NA 144 mmol/L (136-145)
[2020-03-22 12:56] LABS: BARBITURATE SCREEN,URINE NEGATIVE (NEGATIVE); BENZODIAZEPINES SCREEN,URINE NEGATIVE (NEGATIVE); EDDP,URINE SCREEN NEGATIVE (NEGATIVE); METHAMPHETAMINE SCREEN, URINE NEGATIVE (NEGATIVE); TCA SCREEN,URINE NEGATIVE (NEGATIVE); THC SCREEN,URINE 50 NG/ML NEGATIVE (NEGATIVE)
== END 2020-03-22 16:20 ==
LOC: VM.ED 10:40
DX: F41.0 Panic disorder [episodic paroxysmal anxiety] (principal); F32.9 Major depressive disorder, single episode, unspecified; E78.00 Pure hypercholesterolemia, unspecified; E11.9 Type 2 diabetes mellitus without complications; E66.9 Obesity, unspecified; Z68.32 Body mass index [BMI] 32.0-32.9, adult; Z79.82 Long term (current) use of aspirin; Z79.84 Long term (current) use of oral hypoglycemic drugs; Z79.899 Other long term (current) drug therapy
CPT/HCPCS: 36415; 80053; 80305-QW; 80307; 81003; 83735; 85025; 85610; 96372; 99284-GF; 99285; J1630; J2060; U0002

== ENCOUNTER 2020-05-01 14:53 | Emergency (ER) | payer MEDICARE, MEDICAID ==
[2020-05-01] MEDS ORDERED: Sodium Chloride 0.9% 10 ML Syringe FLUSH PRN ×2 (14:55→15:41)
[2020-05-01] MEDS ORDERED: Succinylcholine 200 MG/10 ML MDV ONE (15:11)
[2020-05-01] MEDS ORDERED: Etomidate 2 MG/ML 10 ML SDV IVPUSH ONE (15:17)
[2020-05-01] MEDS ORDERED: fentaNYL 100 MCG/2 ML SDV IVPUSH ONE (15:17)
[2020-05-01] MEDS ORDERED: Succinylcholine 200 MG/10 ML MDV IV ONE (15:17)
[2020-05-01] MEDS ORDERED: Propofol 200 MG/20 ML SDV ONE (15:31)
[2020-05-01] MEDS ORDERED: Propofol 200 MG/20 ML SDV IVPUSH ONE ×2 (15:38→15:40)
[2020-05-01] MEDS ORDERED: Lactated Ringers 1,000 ML IV ONE (15:41)
[2020-05-01 15:57] LABS: BARBITURATE SCREEN,URINE NEGATIVE (NEGATIVE); BENZODIAZEPINES SCREEN,URINE NEGATIVE (NEGATIVE); EDDP,URINE SCREEN NEGATIVE (NEGATIVE); METHAMPHETAMINE SCREEN, URINE NEGATIVE (NEGATIVE); TCA SCREEN,URINE NEGATIVE (NEGATIVE); THC SCREEN,URINE 50 NG/ML NEGATIVE (NEGATIVE)
[2020-05-01 15:59] LABS: PTT,PARTIAL THROMBOPLSTIN TIME 23.5 SEC (25.6-32.8)
--- NOTE | 2020-05-01 16:09 | EDM.PDOC ---
ED HPI GENERAL MEDICAL PROBLEM - General Stated Complaint: Unresponsive Time Seen by Provider: 05/01/20 14:54 Source of Information: Reports: EMS, Police History Limitations: Reports: Altered Mental Status (unresponsive) - History of Present Illness INITIAL COMMENTS - FREE TEXT/NARRATIVE: Patient comes emergency department today by ambulance after a welfare check was summoned to the police and she was found unresponsive at home. Per EMS and police the patient yesterday went to the [facility] with concerns of suicidal ideation. They had spoken with [facility] after the patient was found and obtained this information. They were unable to help her as they had no beds yesterday. Today clinical social work therapist called to check on the patient she did not answer. Therefore clinical social work therapist contacted the police and they found her at home after obtaining access to the house sitting on a chair unresponsive. Initially they thought she was actually to be DOA although she did have a pulse and she was breathing. There were multiple empty pill bottles all over the room and they also found a suicide note stating her intent to kill her self because she is done living in this world. There multiple pills that were not identified but bottles that were empty included meloxicam quetiapine and clonazepam. Unknown time of ingestion or amounts or other medications that were taken. Rest of the HPI is unobtainable as the patient is unresponsive on arrival. - Related Data Allergies Allergy/AdvReac Type Severity Reaction Status Date / Time No Known Allergies Allergy Verified 12/16/19 21:48 Home Meds: Home Meds ARIPiprazole [Aripiprazole] 15 mg PO BEDTIME 06/14/18 [History] Benztropine [Cogentin] 1 mg PO BEDTIME 06/14/18 [History] Desmopressin 0.1 mg PO BEDTIME 06/14/18 [History] Simvastatin 10 mg PO BEDTIME 06/14/18 [History] Vilazodone HCl [Viibryd] 40 mg PO DAILY 06/14/18 [History] buPROPion HCL [Wellbutrin Xl] 300 mg PO DAILY 06/14/18 [History] metFORMIN [Glucophage XR] 250 mg PO BIDMEALS 06/14/18 [History] Aspirin [Halfprin] 81 mg PO DAILY 04/18/19 [History] Gabapentin [Neurontin] 300 - 600 mg PO BEDTIME 04/18/19 [History] Multivitamin [Multi-Vitamin Daily] 1 tab PO DAILY 04/18/19 [History] buPROPion [buPROPion XL] 150 mg PO BEDTIME 04/18/19 [History] lamoTRIgine [Lamotrigine] 150 mg PO BID 04/18/19 [History] Acetaminophen [Tylenol Extra Strength] 1,000 mg PO Q6H PRN tablet 04/20/19 [Rx] predniSONE See Taper PO WITHBREAKFAST #12 tablet 04/21/19 [Rx] Past Medical History HEENT History: Reports: Allergic Rhinitis, Other (See Below) Other HEENT History: myopia. astigmatism Cardiovascular History: Reports: High Cholesterol Respiratory History: Reports: Sleep Apnea Other Respiratory History: CPAP @ night Gastrointestinal History: Reports: Chronic Constipation Genitourinary History: Reports: Other (See Below) Other Genitourinary History: urge incontinence. nonorganic enuresis SUPERVISOR STRIPPING History: Reports: None Musculoskeletal History: Reports: Back Pain, Chronic, Other (See Below) Other Musculoskeletal History: DJD. tendinitis of right shoulder. left achilles tendinitis. hip pain Neurological History: Reports: Other (See Below) Other Neuro History: memory loss Psychiatric History: Reports: Bipolar, Depression, PTSD, Other (See Below) Other Psychiatric History: Borderline Personality Disorder. Dissociative Identity Disorder. social maladjustment Endocrine/Metabolic History: Reports: Diabetes, Type II, Obesity/BMI 30+ Insulin Pump Model and Scrip Clerk: None Hematologic History: Reports: None Immunologic History: Reports: None Oncologic (Cancer) History: Reports: None Dermatologic History: Reports: None - Infectious Disease History Infectious Disease History: Reports: None - Past Surgical History Head Surgeries/Procedures: Reports: None Social & Family History - Family History Family Medical History: Noncontributory GI: Reports: Cirrhosis Endocrine/Metabolic: Reports: Diabetes, type II - Caffeine Use Caffeine Use: Reports: None - Living Situation & Occupation Living situation: Reports: Single, Alone Occupation: Disabled ED ROS GENERAL - Review of Systems Review Of Systems: Unable To Obtain Reason Not Obtained: unresponisve. - Physical Exam Exam: See Below Exam Limited By: Altered Mental Status (unresponsive really. Minimal movement to deep painful stimulation. NO eye opening.) General Appearance: Lethargic, Obtunded, Obese Eye Exam: Bilateral Eye: PERRL (sluggish at 4) Ears: Normal External Exam Nose: Normal Inspection Throat/Mouth: Normal Lips. No: Normal Inspection (Tongue is not moving. Oral secretions not controlled. Sores on the tongue. ) Head Exam: Atraumatic, Normocephalic Neck: Normal Inspection, Supple Respiratory/Chest: Lungs Clear, Decreased Breath Sounds. No: No Respiratory Distress (shallow slow respirations no snoring. ) Cardiovascular: Normal Peripheral Pulses, Regular Rate, Rhythm GI/Abdominal: Normal Bowel Sounds, Soft (Female) Exam: Deferred Rectal (Female) Exam: Deferred Neuro Exam (Abbreviated): Unresponsive (She has minimal purpose movement of her arms with a very painful stimulation. NO eye opening no verbal response no spontaneous movement to all extremities. ) Back Exam: Normal Inspection Extremities: No: Normal Inspection (She has numerous old lacerations large that are old and not infectious appearing ? previous cutting attempts or self harm. Otherwise normal inspection. ) Skin Exam: Dry, Intact, Cool Endotracheal Intubation - Endotracheal Intubation ET Intubation Indication: Airway Protection Preparation: Suction, Balloon Tested, BVM Set Up, Difficult Airway Equip Airway Assessment: Obese Pre-Oxygenation: Assisted with BVM, 100% FiO2 Anesthesia Meds: Etomidate, Fentanyl, Succinylcholine Placement: Orotracheal Cords Visualized: Yes ETT Size In mm: 7.5 Number of Attempts: 1 Confirmed By: CO2 Indicator, Bilateral Breath Sounds, Chest Xray Tube Secured By: By RT EKG INTERPRETATION EKG Date: 05/01/20 Time: 14:53 Rhythm: NSR Rate (Beats/Min): 68 [place]: Normal P-Wave: Present QRS: Normal ST-T: Normal QT: Normal Course - Orders/Labs/Meds Orders: Active Orders 24 hr Category Date Time Status EKG Documentation Completion [RC] STAT Care 05/01/20 14:55 Active Gastrointestinal Tube Mgmt [RC] ASDIRECTED Care 05/01/20 15:38 Active Insert Urinary Catheter [OM.PC] Q24H Care 05/01/20 15:45 Ordered Oxygen Therapy [RC] ASDIRECTED Care 05/01/20 16:27 Active RT Ventilator ED, Adult [RC] ASDIRECTED Care 05/01/20 16:23 Active Urinary Catheter Assessment [RC] ASDIRECTED Care 05/01/20 15:38 Active LAMOTRIGINE, SERUM [REF] Stat Lab 05/01/20 15:32 Received LITHIUM [REF] Stat Lab 05/01/20 15:32 Received SALICYLATE [REF] Stat Lab 05/01/20 15:32 Received Sodium Chloride 0.9% [Saline Flush] Med 05/01/20 14:55 Active 10 ml FLUSH ASDIRECTED PRN Sodium Chloride 0.9% [Saline Flush] Med 05/01/20 15:41 Active 10 ml FLUSH ASDIRECTED PRN propofoL [Diprivan 50 ML] 50 ml Med 05/01/20 15:45 Active IV .TITRATE Nasogastric Orogastric Tube Insertion [OM.PC] Routine Oth 05/01/20 15:38 Ordered Peripheral IV Insertion Adult [OM.PC] Stat Oth 05/01/20 14:55 Ordered Peripheral IV Insertion Adult [OM.PC] Stat Oth 05/01/20 15:41 Ordered Medication Orders Propofol (Diprivan 50 Ml) 50 mls @ 3.39 mls/hr IV .TITRATE VEL; Protocol Last Admin: 05/01/20 16:17 Dose: 5 mcg/kg/min, 3.39 mls/hr Documented by: LEONCIO Sodium Chloride (Saline Flush) 10 ml FLUSH ASDIRECTED PRN PRN Reason: Keep Vein Open Sodium Chloride (Saline Flush) 10 ml FLUSH ASDIRECTED PRN PRN Reason: Keep Vein Open Labs: Laboratory Tests 05/01/20 05/01/20 05/01/20 Range/Units 15:32 15:32 15:32 WBC 5.8 (4.0-10.0) x10^3/uL RBC 4.23 (4.00-5.50) x10^6/uL Hgb 12.5 (12.0-16.0) g/dL Hct 36.1 (33.0-47.0) % MCV 85.3 (78.0-93.0) fL MCH 29.6 (26.0-32.0) pg MCHC 34.6 (32.0-36.0) g/dL RDW Coeff of Bam 13.4 (10.0-15.0) % Plt Count 162 (130-400) x10^3/uL Neut % (Auto) 71.9 (50.0-80.0) % Lymph % (Auto) 19.2 L (25.0-50.0) % Hopkins % (Auto) 8.4 (2.0-11.0) % Eos % (Auto) 0.3 (0.0-4.0) % Baso % (Auto) 0.2 (0.2-1.2) % PT 10.1 (9.5-12.3) SEC INR 0.9 L (2.0-3.5) APTT 23.5 L (25.6-32.8) SEC POC VBG pH (7.31-7.41) POC VBG pCO2 (41-51) POC VBG pO2 POC VBG HCO3 (23-28) POC VBG Total CO2 (24-29) POC VBG Base Excess ((-2) - 3) POC FiO2 Sodium 139 (136-145) mmol/L Potassium 4.9 (3.5-5.1) mmol/L Chloride 105 (98-107) mmol/L Carbon Dioxide 23 (21-32) mmol/L Anion Gap 15.9 (10-20) mmol/L BUN 15 (7-18) mg/dL Creatinine 1.1 H (0.55-1.02) mg/dL Est Cr Clr Drug Dosing TNP Estimated GFR (MDRD) 50 Glucose 129 H (74-106) mg/dL Lactic Acid (0.4-2.0) mmol/L Calcium 8.7 (8.5-10.1) mg/dL Corrected Calcium 9.10 (8.5-10.1) mg/dL Magnesium 1.9 (1.8-2.4) mg/dL Total Bilirubin 0.3 (0.2-1.0) mg/dL AST 74 H (15-37) U/L ALT 35 (14-59) U/L Alkaline Phosphatase 78 (46-116) U/L Troponin I < 0.017 (<=0.056) ng/mL C-Reactive Protein 0.7 (<=0.9) mg/dL Total Protein 7.2 (6.4-8.2) g/dL Albumin 3.5 (3.4-5.0) g/dL Globulin 3.7 Albumin/Globulin Ratio 0.95 Urine Color (YELLOW) Urine Appearance (CLEAR) Urine pH (5.0-8.0) Ur Specific Waucoma Urine Protein (NEGATIVE) mg/dL Urine Glucose (UA) (NEGATIVE) mg/dL Urine Ketones (NEGATIVE) mg/dL Urine Occult Blood (NEGATIVE) Urine Nitrite (NEGATIVE) Urine Bilirubin (NEGATIVE) Urine Urobilinogen (0.2) EU/dL Ur Leukocyte Esterase (NEGATIVE) U Hyaline Cast (Auto) Urine RBC (NOT SEEN) /HPF Urine WBC (NOT SEEN) /HPF Ur Squamous Epith Cells (NEGATIVE) /HPF Urine Bacteria (NEGATIVE) /HPF Granular Casts (Auto) Urine Mucus (NEGATIVE) /LPF Urine HCG, Qual (NEGATIVE) Urine Opiates Screen (NEGATIVE) Ur Buprenorphine Scrn (NEGATIVE) Ur Oxycodone Screen (NEGATIVE) Ur EDDP (Meth Metab) (NEGATIVE) Urine Methadone Screen (NEGATIVE) Acetaminophen 0 L (10-30) ug/ml Ur Barbiturates Screen (NEGATIVE) Ur Tricyclics Screen (NEGATIVE) Ur Phencyclidine Scrn (NEGATIVE) Ur Amphetamine Screen (NEGATIVE) U Methamphetamines Scrn (NEGATIVE) Urine MDMA Screen (NEGATIVE) U Benzodiazepines Scrn (NEGATIVE) U Cocaine Metab Screen (NEGATIVE) U Marijuana (THC) Screen (NEGATIVE) Ethyl Alcohol < 3 (0-3) mg/dL 05/01/20 05/01/20 05/01/20 Range/Units 15:32 15:36 15:36 WBC (4.0-10.0) x10^3/uL RBC (4.00-5.50) x10^6/uL Hgb (12.0-16.0) g/dL Hct (33.0-47.0) % MCV (78.0-93.0) fL MCH (26.0-32.0) pg MCHC (32.0-36.0) g/dL RDW Coeff of Bam (10.0-15.0) % Plt Count (130-400) x10^3/uL Neut % (Auto) (50.0-80.0) % Lymph % (Auto) (25.0-50.0) % Hopkins % (Auto) (2.0-11.0) % Eos % (Auto) (0.0-4.0) % Baso % (Auto) (0.2-1.2) % PT (9.5-12.3) SEC INR (2.0-3.5) APTT (25.6-32.8) SEC POC VBG pH (7.31-7.41) POC VBG pCO2 (41-51) POC VBG pO2 POC VBG HCO3 (23-28) POC VBG Total CO2 (24-29) POC VBG Base Excess ((-2) - 3) POC FiO2 Sodium (136-145) mmol/L Potassium (3.5-5.1) mmol/L Chloride (98-107) mmol/L Carbon Dioxide (21-32) mmol/L Anion Gap (10-20) mmol/L BUN (7-18) mg/dL Creatinine (0.55-1.02) mg/dL Est Cr Clr Drug Dosing Estimated GFR (MDRD) Glucose (74-106) mg/dL Lactic Acid 2.0 (0.4-2.0) mmol/L Calcium (8.5-10.1) mg/dL Corrected Calcium (8.5-10.1) mg/dL Magnesium (1.8-2.4) mg/dL Total Bilirubin (0.2-1.0) mg/dL AST (15-37) U/L ALT (14-59) U/L Alkaline Phosphatase (46-116) U/L Troponin I (<=0.056) ng/mL C-Reactive Protein (<=0.9) mg/dL Total Protein (6.4-8.2) g/dL Albumin (3.4-5.0) g/dL Globulin Albumin/Globulin Ratio Urine Color Dark yellow H (YELLOW) Urine Appearance Slightly cloudy H (CLEAR) Urine pH 6.0 (5.0-8.0) Ur Specific Waucoma >=1.030 Urine Protein 30 H (NEGATIVE) mg/dL Urine Glucose (UA) Negative (NEGATIVE) mg/dL Urine Ketones Negative (NEGATIVE) mg/dL Urine Occult Blood Moderate H (NEGATIVE) Urine Nitrite Negative (NEGATIVE) Urine Bilirubin Negative (NEGATIVE) Urine Urobilinogen 0.2 (0.2) EU/dL Ur Leukocyte Esterase Negative (NEGATIVE) U Hyaline Cast (Auto) Few Urine RBC 5-10 H (NOT SEEN) /HPF Urine WBC 0-5 (NOT SEEN) /HPF Ur Squamous Epith Cells Rare (NEGATIVE) /HPF Urine Bacteria Rare (NEGATIVE) /HPF Granular Casts (Auto) Few Urine Mucus Moderate H (NEGATIVE) /LPF Urine HCG, Qual Negative (NEGATIVE) Urine Opiates Screen (NEGATIVE) Ur Buprenorphine Scrn (NEGATIVE) Ur Oxycodone Screen (NEGATIVE) Ur EDDP (Meth Metab) (NEGATIVE) Urine Methadone Screen (NEGATIVE) Acetaminophen (10-30) ug/ml Ur Barbiturates Screen (NEGATIVE) Ur Tricyclics Screen (NEGATIVE) Ur Phencyclidine Scrn (NEGATIVE) Ur Amphetamine Screen (NEGATIVE) U Methamphetamines Scrn (NEGATIVE) Urine MDMA Screen (NEGATIVE) U Benzodiazepines Scrn (NEGATIVE) U Cocaine Metab Screen (NEGATIVE) U Marijuana (THC) Screen (NEGATIVE) Ethyl Alcohol (0-3) mg/dL 05/01/20 05/01/20 Range/Units 15:36 15:38 WBC (4.0-10.0) x10^3/uL RBC (4.00-5.50) x10^6/uL Hgb (12.0-16.0) g/dL Hct (33.0-47.0) % MCV (78.0-93.0) fL MCH (26.0-32.0) pg MCHC (32.0-36.0) g/dL RDW Coeff of Bam (10.0-15.0) % Plt Count (130-400) x10^3/uL Neut % (Auto) (50.0-80.0) % Lymph % (Auto) (25.0-50.0) % Hopkins % (Auto) (2.0-11.0) % Eos % (Auto) (0.0-4.0) % Baso % (Auto) (0.2-1.2) % PT (9.5-12.3) SEC INR (2.0-3.5) APTT (25.6-32.8) SEC POC VBG pH 7.35 (7.31-7.41) POC VBG pCO2 38 L (41-51) POC VBG pO2 108 POC VBG HCO3 21 L (23-28) POC VBG Total CO2 22 L (24-29) POC VBG Base Excess -5 L ((-2) - 3) POC FiO2 0.90 Sodium (136-145) mmol/L Potassium (3.5-5.1) mmol/L Chloride (98-107) mmol/L Carbon Dioxide (21-32) mmol/L Anion Gap (10-20) mmol/L BUN (7-18) mg/dL Creatinine (0.55-1.02) mg/dL Est Cr Clr Drug Dosing Estimated GFR (MDRD) Glucose (74-106) mg/dL Lactic Acid (0.4-2.0) mmol/L Calcium (8.5-10.1) mg/dL Corrected Calcium (8.5-10.1) mg/dL Magnesium (1.8-2.4) mg/dL Total Bilirubin (0.2-1.0) mg/dL AST (15-37) U/L ALT (14-59) U/L Alkaline Phosphatase (46-116) U/L Troponin I (<=0.056) ng/mL C-Reactive Protein (<=0.9) mg/dL Total Protein (6.4-8.2) g/dL Albumin (3.4-5.0) g/dL Globulin Albumin/Globulin Ratio Urine Color (YELLOW) Urine Appearance (CLEAR) Urine pH (5.0-8.0) Ur Specific Waucoma Urine Protein (NEGATIVE) mg/dL Urine Glucose (UA) (NEGATIVE) mg/dL Urine Ketones (NEGATIVE) mg/dL Urine Occult Blood (NEGATIVE) Urine Nitrite (NEGATIVE) Urine Bilirubin (NEGATIVE) Urine Urobilinogen (0.2) EU/dL Ur Leukocyte Esterase (NEGATIVE) U Hyaline Cast (Auto) Urine RBC (NOT SEEN) /HPF Urine WBC (NOT SEEN) /HPF Ur Squamous Epith Cells (NEGATIVE) /HPF Urine Bacteria (NEGATIVE) /HPF Granular Casts (Auto) Urine Mucus (NEGATIVE) /LPF Urine HCG, Qual (NEGATIVE) Urine Opiates Screen Negative (NEGATIVE) Ur Buprenorphine Scrn Negative (NEGATIVE) Ur Oxycodone Screen Negative (NEGATIVE) Ur EDDP (Meth Metab) Negative (NEGATIVE) Urine Methadone Screen Negative (NEGATIVE) Acetaminophen (10-30) ug/ml Ur Barbiturates Screen Negative (NEGATIVE) Ur Tricyclics Screen Negative (NEGATIVE) Ur Phencyclidine Scrn Negative (NEGATIVE) Ur Amphetamine Screen Negative (NEGATIVE) U Methamphetamines Scrn Negative (NEGATIVE) Urine MDMA Screen Negative (NEGATIVE) U Benzodiazepines Scrn Negative (NEGATIVE) U Cocaine Metab Screen Negative (NEGATIVE) U Marijuana (THC) Screen Negative (NEGATIVE) Ethyl Alcohol (0-3) mg/dL Meds: Medications Generic Name Dose Route Start Last Admin Trade Name Freq PRN Reason Stop Dose Admin Propofol 50 mls @ 3.39 mls/hr 05/01/20 15:45 05/01/20 16:17 Diprivan 50 Ml IV 5 mcg/kg/min .TITRATE VEL 3.39 mls/hr Administration Protocol 5 MCG/KG/MIN Sodium Chloride 10 ml 05/01/20 14:55 Saline Flush FLUSH ASDIRECTED PRN Keep Vein Open Sodium Chloride 10 ml 05/01/20 15:41 Saline Flush FLUSH ASDIRECTED PRN Keep Vein Open Discontinued Medications Generic Name Dose Route Start Last Admin Trade Name Viviane PRN Reason Stop Dose Admin Etomidate 20 mg 05/01/20 15:17 Amidate IVPUSH 05/01/20 15:18 ONETIME ONE Fentanyl 100 mcg 05/01/20 15:17 Sublimaze IVPUSH 05/01/20 15:18 ONETIME ONE Lactated Ringer's 1,000 mls @ 999 mls/hr 05/01/20 15:41 Ringers, Lactated IV 05/01/20 16:41 ONETIME ONE Propofol Confirm 05/01/20 16:23 Diprivan 50 Ml Administered 05/01/20 16:24 Dose 50 mls @ as directed .ROUTE .STK-MED ONE Propofol Confirm 05/01/20 15:31 Diprivan 20 Ml Administered 05/01/20 15:32 Dose 200 mg .ROUTE .STK-MED ONE Propofol 50 mg 05/01/20 15:38 Diprivan 20 Ml IVPUSH 05/01/20 15:39 ONETIME ONE Propofol 50 mg 05/01/20 15:40 Diprivan 20 Ml IVPUSH 05/01/20 15:41 ONETIME ONE Succinylcholine Chloride Confirm 05/01/20 15:11 Quelicin Administered 05/01/20 15:12 Dose 200 mg .ROUTE .STK-MED ONE Succinylcholine Chloride 100 mg 05/01/20 15:17 Quelicin IV 05/01/20 15:18 ONETIME ONE - Radiology Interpretation Free Text/Narrative:: CXR per radiology post intubation ET tube and NG in good position. CT of head per radiology. No plain CT evidence of acute intracranial process - Re-Assessments/Exams Free Text/Narrative Re-Assessment/Exam: 05/01/20 The patient is somewhat responsive minimal movement of arms purposefull with deep painful stimulation. Does not protect airway with secretions. Decision to RSI intubation due to LOC. RSI equipment difficult airway equipment was available. Correct patient was identified. Fentanyl 100 mcg IV push etomidate 20 mg IV push and succinylcholine 100 mg IV push. The patient was easily visualized with the cords and the ET tube through the cords with the use of the glide scope. The balloon was inflated. She had bilateral lung sounds. Positive end-tidal CO2 on the quantitative monitor at 27. Good chest rise. Oxygen saturations appropriate. 1 L LR bolus. OG-tube placed and placed on suction no pill fragments identified. Lopez placed. Propofol bolus for agitation and awakening post intubation. Placed on propofol gtt. Ct head for unresponsive. I called and spoke with DR. Owens the hospitalist vice president education at [facility]. HPI ER COURSE findings and concerns were relayed to him and the information from the EMS and police from the scene. He accepted the patient in transfer at this time. NO new orders or directions. Family was contacted by the nursing staff. 05/01/20 16:43 Departure - Departure Time of Disposition: 16:04 Disposition: DC/Tfer to [facility] 02 Clinical Impression: Encounter for intubation Polysubstance overdose Qualifiers: Encounter type: initial encounter Injury intent: intentional self-harm Qualified Code(s): T50.902A - Poisoning by unspecified drugs, medicaments and biological substances, intentional self-harm, initial encounter - Discharge Information Forms: [facility] Critical Care Note - Critical Care Note Total Time (mins): 75 (75 minutes in direct patient care management consultation with [employer] Machine Operator at [facility]. This does not include separate billable procedures. ) - My Orders Last 24 Hours: My Active Orders 05/01/20 14:55 EKG Documentation Completion [RC] STAT Sodium Chloride 0.9% [Saline Flush] 10 ml FLUSH ASDIRECTED PRN Peripheral IV Insertion Adult [OM.PC] Stat 05/01/20 15:32 LAMOTRIGINE, SERUM [REF] Stat LITHIUM [REF] Stat SALICYLATE [REF] Stat 05/01/20 15:38 Gastrointestinal Tube Mgmt [RC] ASDIRECTED Urinary Catheter Assessment [RC] ASDIRECTED Nasogastric Orogastric Tube Insertion [OM.PC] Routine 05/01/20 15:41 Sodium Chloride 0.9% [Saline Flush] 10 ml FLUSH ASDIRECTED PRN Peripheral IV Insertion Adult [OM.PC] Stat 05/01/20 15:45 Insert Urinary Catheter [OM.PC] Q24H propofoL [Diprivan 50 ML] 50 ml IV .TITRATE 05/01/20 16:23 RT Ventilator ED, Adult [RC] ASDIRECTED 05/01/20 16:27 Oxygen Therapy [RC] ASDIRECTED - Assessment/Plan Last 24 Hours: My Active Orders 05/01/20 14:55 EKG Documentation Completion [RC] STAT Sodium Chloride 0.9% [Saline Flush] 10 ml FLUSH ASDIRECTED PRN Peripheral IV Insertion Adult [OM.PC] Stat 05/01/20 15:32 LAMOTRIGINE, SERUM [REF] Stat LITHIUM [REF] Stat SALICYLATE [REF] Stat 05/01/20 15:38 Gastrointestinal Tube Mgmt [RC] ASDIRECTED Urinary Catheter Assessment [RC] ASDIRECTED Nasogastric Orogastric Tube Insertion [OM.PC] Routine 05/01/20 15:41 Sodium Chloride 0.9% [Saline Flush] 10 ml FLUSH ASDIRECTED PRN Peripheral IV Insertion Adult [OM.PC] Stat 05/01/20 15:45 Insert Urinary Catheter [OM.PC] Q24H propofoL [Diprivan 50 ML] 50 ml IV .TITRATE 05/01/20 16:23 RT Ventilator ED, Adult [RC] ASDIRECTED 05/01/20 16:27 Oxygen Therapy [RC] ASDIRECTED Assessment:: Polysubstance OVerdose Clonazepam Meloxicam Seroquel. Unresponsive requiring airway protection and RSI intubation. Suicide attempt by overdose left a note. Plan: Transfer by ground ambulance to [facility] for further care management.
--- NOTE | 2020-05-01 16:11 | CR ---
[id number] RAD/RAD Chest PA or AP 1V EXAM: SINGLE VIEW CHEST. INDICATION: PLACEMENT OF ENDOTRACHEAL TUBE COMPARISON: NO PREVIOUS SIMILAR EXAM IS AVAILABLE FINDINGS: The ET tube is in place The NG tube is in the stomach There is volume loss at the lung bases The cardiac silhouette is enlarged IMPRESSION: ET TUBE AND NG TUBE IN GOOD POSITION Juan Alberto Valentin MD 05/01/20 0481 Thank you for allowing us to participate in the care of your patient.
[2020-05-01 16:14] LABS: CHLORIDE,CL 105 mmol/L (98-107); SODIUM,NA 139 mmol/L (136-145)
[2020-05-01] MEDS: propofoL 50 ML IV SCH (16:17)
[2020-05-01 16:18] LABS: ANION GAP 15.9 mmol/L (10-20)
[2020-05-01] MEDS ORDERED: propofoL 50 ML ONE (16:23)
--- NOTE | 2020-05-01 16:26 | CT ---
[id number] CT/CT Head WO IV EXAM: CT Head WO IV CLINICAL DATA: UNRESPONSIVE PATIENT COMPARISON: CORRELATION IS MADE WITH APRIL 18, 2019 FINDINGS: There is no mass or mass effect. There is no hemorrhage or hydrocephalus. There are no extra-axial fluid collections. There are no sites of abnormal attenuation. IMPRESSION: NO PLAIN CT EVIDENCE OF ACUTE INTRACRANIAL PROCESS. Juan Alberto Valentin MD 05/01/20 8004 Thank you for allowing us to participate in the care of your patient.
[2020-05-01 16:29] LABS: ACETAMINOPHEN 0 ug/ml (10-30)
[2020-05-01] MEDS ORDERED: Rocuronium 50 MG/5 ML Vial ONE (17:20)
[2020-05-01] MEDS ORDERED: fentaNYL 100 MCG/2 ML SDV ONE (20:26)
[2020-05-01] MEDS ORDERED: Etomidate 2 MG/ML 10 ML SDV ONE (20:27)
== END 2020-05-01 17:17 | disposition short-term general hospital (02) ==
LOC: VM.ED 14:53
DX: T50.902A Poisoning by unspecified drugs, medicaments and biological substances, intentional self-harm, initial encounter (principal); E78.00 Pure hypercholesterolemia, unspecified; F31.9 Bipolar disorder, unspecified; E11.9 Type 2 diabetes mellitus without complications; E66.9 Obesity, unspecified; Z79.899 Other long term (current) drug therapy; Z79.82 Long term (current) use of aspirin
CPT/HCPCS: 31500; 36415; 43752; 51702; 70450; 71045; 80053; 80175; 80178; 80305-QW; 80307; 81001; 81025; 82803; 83605; 83735; 84484; 85025; 85610; 85730; 86140; 93005; 93010; 94002; 96365; 99285-25; 99291; J0330; J2704; J3010; J3490